=== PATIENT | male | born 1960 | race African-American/Black ===

== ENCOUNTER 2016-10-07 17:12 | Inpatient (IN) | payer MEDICARE ==
[~2016-10-07] VITALS: Ht 185.4 cm; Wt 103.7 kg
[~2016-10-07 17:12] MED LIST: DIAZ10TA4 PO; NAPR-260 PO
--- NOTE | 2016-10-07 19:07 | ERA ---
ER Documentation Chief Complaint Date/Time DATE: 10/07/16 TIME: 19:07 Chief Complaint Left leg weakness, bowel and urinary incontinence HPI The patient is a 56-year-old male, presenting to the ER because of left lower extremity weakness, associated with bowel and bladder incontinence for the last 2 weeks. He has fever and intermittent cough for the last 2 weeks. He denies chills, facial pain, neck pain, chest pain, dyspnea. He complains of left- sided abdominal pain intermittently for the last 2 weeks, denies diarrhea, constipation. He smokes socially, denies drinking or using illicit drug Past medical history: Chronic low back pain, HIV, hypertension, BPH, hepatitis C Past surgical history: Appendectomy, left knee arthroscopic surgery ROS All systems reviewed and are negative except as per history of present illness. Medications Home Meds Active Scripts Diazepam* (Diazepam*) 10 Mg Tablet, 10 MG PO Q12, #14 TAB Prov:FRANCISCO GAMBAO PA-C 06/04/16 Naproxen* (Naprosyn*) 500 Mg Tablet, 500 MG PO BID, #20 TAB Prov:FRANCISCO GAMBOA PA-C 06/04/16 PMhx/Soc Hx Cardiac Disorders: Yes (htn) Hx Alcohol Use: No Hx Substance Use: No Hx Tobacco Use: No Smoking Status: Current some day smoker Physical Exam Vitals Vital Signs Date Time Temp Pulse Resp B/P Pulse Ox O2 Delivery O2 Flow Rate FiO2 10/07/16 17:21 100.5 106 20 168/86 98 Physical Exam Const: No acute distress. Head: Atraumatic. Eyes: Normal Conjunctiva. ENT: Normal External Ears, Nose and Mouth. Neck: Full range of motion. No meningismus. Resp: Clear to auscultation bilaterally. Cardio: Regular rate and rhythm, no murmurs. Abd: Soft, non distended, normal bowel sounds, vague and mild left- sided abdominal tenderness, no right lower quadrant, right upper quadrant, epigastric, CVA tenderness Skin: No petechiae or rashes. Back: No midline or flank tenderness. Ext: Limited due to his condition, mild left leg weakness Neur: Awake and alert. No focal deficit Psych: Normal Mood and Affect. Procedures/MDM EKG: Read by emergency physician Rate/Rhythm: Sinus tachycardia 102 beats per min QRS, ST, T-waves: No ST elevation, no T wave inversion Impression: Abnormal EKG [place] [address] Radiology Main Line: [phone] DIAGNOSTIC IMAGING REPORT Patient: MARGARET GOLDSTEIN : 1960 Age: 56 Sex: M MR #: [id number] DOS: 10/07/161924 Ordering MD: MARZENA FLEMING MD Location: [facility]TE Room/Bed: PROCEDURE: XR Chest. CLINICAL INDICATION: Possible sepsis. TECHNIQUE: Single frontal view of the chest was obtained COMPARISON: None FINDINGS: The heart and mediastinum are within normal limits. The lungs are clear. There is no pleural effusion or pneumothorax. IMPRESSION: No acute disease. RPTAT: UU Physician Angela Date Time Electronically viewed and signed by Physician Angela on 10/07/2016 19:52 RS/ CC: MARZENA FLEMING MD [place] [address] Radiology Main Line: [phone] DIAGNOSTIC IMAGING REPORT Patient: MARGARET GOLDSTEIN : 1960 Age: 56 Sex: M MR #: [id number] DOS: 10/07/161924 Ordering MD: MARZENA FLEMING MD Location: E Room/Bed: PROCEDURE: CT abdomen and pelvis without contrast. CLINICAL INDICATION: Abdominal pain. TECHNIQUE: CT scan of the abdomen and pelvis without contrast was performed on a multislice CT scanner utilizing axial imaging from the lung bases through the pubis symphysis. The patient was scanned without intravenous contrast. Sagittal and coronal reformatted images were made. The CTDIvol is 18.70 mGy and the DLP is 1164.31 mGycm. One of the following 3 dose reduction techniques were used during this CT examination: automated exposure control; adjustment of the mA and /or kV according to patient size; or use of iterative reconstruciton technique. COMPARISON: None available FINDINGS: The lung bases are clear. The heart size is normal. No pericardial or pleural effusion is present. The limited noncontrast evaluation of the liver is normal. The visualized spleen, pancreas, gallbladder, bilateral adrenal glands are normal. The bilateral kidneys are normal without evidence for hydroureteronephrosis or nephroureterolithiasis. The limited evaluation of the aorta demonstrates mild vascular calcifications without evidence for aneurysmal dilatation. No evidence for pathologic lymphadenopathy is present. The visualized pelvis demonstrates a moderately distended urinary bladder with mildly thickened wall. The prostate gland is mildly enlarged. No evidence for pneumoperitoneum since present. The surrounding osseous structures are remarkable for degenerative changes and bridging osteophytes of the bilateral sacroiliac joints. Degenerative changes are noted of the spine. IMPRESSION: 1. No evidence for acute intra-abdominal or pelvic pathology. 2. Mild atherosclerotic vascular disease 3. Mild bladder wall thickening and an incompletely distended bladder 4. Mild prostatic enlargement and correlate with prostate-specific antigen. RPTAT: HDC .Kenna Calhoun MD, MD Date Time Electronically viewed and signed by .Kenna Calhoun MD, MD on 10/07/2016 19: 57 .C/ CC: MARZENA FLEMING MD All diagnostic blood tests, lumbar MRI are pending MEDICAL MAKING DECISION: The patient is a 66-year-old male, presenting to the ER with acute left leg weakness, associated with fecal and urine incontinence, concerning for spinal cord compression/cauda equina syndrome. He is awaiting for emergent MRI with and without contrast of the lumbar spine. The differential diagnoses considered include but are not limited to caudal equina syndrome, spinal abscess, DJD, diskitis, lumbar radiculopathy, pneumonia, cystitis, pyelonephritis. He was treated empirically with vancomycin IV, Zosyn IV Departure Diagnosis: Primary Impression: Left leg weakness Additional Impressions: Urinary incontinence Fecal incontinence Back pain Condition: Stable Comments I discussed the findings with the patient. I discussed the patient with the on- call hospitalist Dr. Chavez who was made aware of the pending lab and MRI, the treatment, the patient condition. The patient is admitted to telemetry at 8:10 PM MARZENA FLEMING MD Oct 07, 2016 19:07
--- NOTE | 2016-10-07 19:53 | RADRPT ---
PROCEDURE: XR Chest. CLINICAL INDICATION: Possible sepsis. TECHNIQUE: Single frontal view of the chest was obtained COMPARISON: None FINDINGS: The heart and mediastinum are within normal limits. The lungs are clear. There is no pleural effusion or pneumothorax. IMPRESSION: No acute disease. RPTAT: UU Physician Angela Date Time Electronically viewed and signed by Chang Witt Physician on 10/07/2016 19:52 RS/
--- NOTE | 2016-10-07 19:57 | RADRPT ---
PROCEDURE: CT abdomen and pelvis without contrast. CLINICAL INDICATION: Abdominal pain. TECHNIQUE: CT scan of the abdomen and pelvis without contrast was performed on a multislice CT [facility] utilizing axial imaging from the lung bases through the pubis symphysis. The patient was scann ed without intravenous contrast. Sagittal and coronal reformatted images were made. The CTDIvol is 18.70 mGy and the DLP is 1164.31 mGycm. One of the following 3 dose reduction techniques were used during this CT examination: automated exp osure control; adjustment of the mA and /or kV according to patient size; or use of iterative recons truciton technique. COMPARISON: None available FINDINGS: The lung bases are clear. The heart size is normal. No pericardial or pleural effusion is present. The limited noncontrast evaluation of the liver is normal. The visualized spleen, pancreas, gallbla dder, bilateral adrenal glands are normal. The bilateral kidneys are normal without evidence for hy droureteronephrosis or nephroureterolithiasis. The limited evaluation of the aorta demonstrates mild vascular calcifications without evidence for a neurysmal dilatation. No evidence for pathologic lymphadenopathy is present. The visualized pelvis demonstrates a moderately distended urinary bladder with mildly thickened wall . The prostate gland is mildly enlarged. No evidence for pneumoperitoneum since present. The surrounding osseous structures are remarkable for degenerative changes and bridging osteophytes of the bilateral sacroiliac joints. Degenerative changes are noted of the spine. IMPRESSION: 1. No evidence for acute intra-abdominal or pelvic pathology. 2. Mild atherosclerotic vascular disease 3. Mild bladder wall thickening and an incompletely distended bladder 4. Mild prostatic enlargement and correlate with prostate-specific antigen. RPTAT: HDC .Kenna Calhoun MD, MD Date Time Electronically viewed and signed by .Kenna Calhoun MD, MD on 10/07/2016 19:57 .C/
[2016-10-07 20:12] LABS: BASOPHILS % 0.3 % (0.0-2.0); EOSINOPHILS % 0.1 % (0.0-7.0); HEMATOCRIT 38.3 % (42.0-52.0); HEMOGLOBIN 12.8 g/dl (14.0-18.0); LYMPHOCYTES # 2.1 10^3/ul (0.8-2.9); LYMPHOCYTES % 20.9 % (15.0-51.0); MEAN CORPUSCULAR HEMOGLOBIN 31.4 pg (29.0-33.0); MEAN CORPUSCULAR HGB CONC 33.3 g/dl (32.0-37.0); MEAN CORPUSCULAR VOLUME 94.2 fl (82.0-101.0); MEAN PLATELET VOLUME 10.4 fl (7.4-10.4); MONOCYTE # 1.1 10^3/ul (0.3-0.9); MONOCYTES % 11.1 % (0.0-11.0); NEUTROPHIL # 6.7 10^3/ul (1.6-7.5); NEUTROPHILS % 67.6 % (39.0-77.0); PLATELET COUNT 122 10^3/UL (140-440); RED BLOOD COUNT 4.07 10^6/ul (4.70-6.10)
[2016-10-07] MEDS ORDERED: VANCOMYCIN IV PER PHARMACY XX STA (20:12)
[2016-10-07 20:17] LABS: ALBUMIN 4.2 g/dl (3.3-4.9); CHLORIDE 101 mmol/L (97-110); INR 1.1; PROTIME 14.2 Sec (12.2-14.2); PT RATIO 1.1
[2016-10-07 20:18] LABS: PARTIAL THROMBOPLASTIN TIME 29.2 Sec (25.0-35.0); SODIUM 142 mmol/L (135-144)
[2016-10-07 20:20] LABS: ALANINE AMINOTRANSFERASE 28 IU/L (13-69); ALBUMIN/GLOBULIN RATIO 0.97; ALKALINE PHOSPHATASE 79 IU/L (42-121); ANION GAP 19 (8-16); ASPARTATE AMINO TRANSFERASE 40 IU/L (15-46); BILIRUBIN,INDIRECT 0.9 mg/dl (0-1.1); BILIRUBIN,TOTAL 0.9 mg/dl (0.2-1.3); BLOOD UREA NITROGEN 13 mg/dl (7-20); CARBON DIOXIDE 26 mmol/L (21-31); CREATININE 0.87 mg/dl (0.61-1.24); GLUCOSE 93 mg/dl (70-220); TOTAL PROTEIN 8.5 g/dl (6.1-8.1)
[2016-10-07 20:24] LABS: ETHANOL < 10.0 mg/dl
[2016-10-07 20:25] LABS: CONDITION 1
[2016-10-07] MEDS ORDERED: PIPER-TAZO 3.375 GM IV (PMX) 100 ML IVPB ONE (20:30)
[2016-10-07 20:34] LABS: TROPONIN-I < 0.012 ng/ml (0.00-0.12)
[2016-10-07] MEDS ORDERED: VANCOMYCIN 2 GM in SOD CHLORIDE 0.9% 500 ML IVPB ONE (21:00)
[2016-10-07 21:59] VITALS: TEMP 98
[2016-10-07 22:30] VITALS: BP 155/86; PULSE 100; RESP 20; Ht 185.4 cm; Wt 103.7 kg
[2016-10-07 22:37] VITALS: PULSE 101
[2016-10-08] VITALS (14 sets, daily range): BP systolic 129–155; BP diastolic 64–90; PULSE 83–111; RESP 16–18
[2016-10-08] MEDS ORDERED: DIAZEPAM 5 MG TAB PO PRN (00:30)
[2016-10-08] MEDS ORDERED: NAPROXEN 500 MG TAB PO PRN (00:30)
[2016-10-08] MEDS ORDERED: ONDANSETRON 4 MG INJ IV PRN (00:30)
[2016-10-08] MEDS ORDERED: morphine 4 MG/ML VIAL IV PRN (00:30)
[2016-10-08 06:57] LABS: BASOPHILS % 0.1 % (0.0-2.0); HEMATOCRIT 36.6 % (42.0-52.0); HEMOGLOBIN 12.4 g/dl (14.0-18.0); LYMPHOCYTES # 1.9 10^3/ul (0.8-2.9); LYMPHOCYTES % 19.4 % (15.0-51.0); MEAN CORPUSCULAR HEMOGLOBIN 31.8 pg (29.0-33.0); MEAN CORPUSCULAR HGB CONC 33.8 g/dl (32.0-37.0); MEAN CORPUSCULAR VOLUME 94.3 fl (82.0-101.0); MEAN PLATELET VOLUME 10.6 fl (7.4-10.4); MONOCYTE # 1.2 10^3/ul (0.3-0.9); MONOCYTES % 12.3 % (0.0-11.0); NEUTROPHIL # 6.8 10^3/ul (1.6-7.5); NEUTROPHILS % 68.2 % (39.0-77.0); PLATELET COUNT 120 10^3/UL (140-440); RED BLOOD COUNT 3.89 10^6/ul (4.70-6.10); RED CELL DISTRIBUTION WIDTH 11.9 % (11.5-14.5); UNCORRECTED WBC 9.9 10^3/ul (4.8-10.8); WHITE BLOOD COUNT 9.9 10^3/ul (4.8-10.8)
[2016-10-08 07:08] LABS: CONDITION 1; POTASSIUM 3.8 mmol/L (3.5-5.1)
[2016-10-08 07:10] LABS: CREATININE 0.8 mg/dl (0.61-1.24)
[2016-10-08 07:11] LABS: CALCIUM 8.8 mg/dl (8.4-10.2)
--- NOTE | 2016-10-08 12:18 | HP ---
DATE OF ADMISSION: 10/07/2016 TIME SEEN: 2300. CHIEF COMPLAINT: 1. Left lower extremity weakness. 2. Incontinence. 3. Back pain. HISTORY OF PRESENT ILLNESS: The patient is a 56-year-old male with a history of HIV diagnosed about 16 years ago and hypertension, who presented to the emergency department with the above stated hood f complaint. He states data he has been dealing with the lower back pain since he was in his 30s an d about a month ago he started noticing left lower extremity weakness and pain, especially when ambu lating. About 2 weeks ago he noticed intermittent bowel and bladder incontinence and as such, he cam e to the ER for evaluation. He denied any recent trauma. He also denied chest pain, shortness of br eath, blurry vision, headache, fever, chills, nausea, or vomiting. As far as his HIV is concerned, it was diagnosed around the year 1999 but lately he has not been compliant with his medications. He said recently his HIV medications were changed and because of "interaction with other medication" h as only been taking some of his medications and in fact the last time he took any of his HIV medicat ion was over a week ago. He does not know his CD4 count or his viral load. When he presented to the ER, the patient was febrile with a temperature of 100.5 and he was tachycar dic. The spine MRI has been ordered but still pending. REVIEW OF SYSTEMS: Performed and is negative except as mentioned in HPI. PAST MEDICAL HISTORY: As per HPI. SOCIAL HISTORY: Positive for tobacco. He drinks alcohol occasionally. He had a history of marijua na and cocaine, but he quit a while ago. ALLERGIES: HOME MEDICATIONS: The only one that he remembers is [place]. PHYSICAL EXAMINATION: VITAL SIGNS: Stable. GENERAL: The patient lying in bed in no acute distress. He is cooperative. Answering questions ap propriately and is alert and oriented. HEENT: No obvious head deformity. Pupils are reactive to light. Extraocular muscles intact. CARDIOVASCULAR: Regular rate and rhythm, no extra sounds. LUNGS: Clear. ABDOMEN: Soft, nontender, nondistended. Positive bowel sounds. EXTREMITIES: There is tenderness in the left lower extremity especially on the thigh area. He has s mooth shiny skin on his tang with some thin hair on the left lower extremity. BACK: Examination of his back did not illicit any obvious deformity or abnormality, but there was so me tenderness at the lower lumbar region. IMPRESSION: 1. Lower back pain with sciatica, concerning for possible cauda equina. 2. Bowel and bladder incontinence, concerning for cauda equina syndrome. 3. History of human immunodeficiency virus, diagnosed around the year 1999. 4. History of hypertension. 5. Sepsis inflammatory response syndrome, ____ by fever and tachycardia. 6. History of hepatitis C, never treated. PLAN: We will provide pain medication as needed. Will await for the results of final MRI to evaluat e if there is any cord compression. Neurosurgery consultation needs to be placed. Will do infectious workup ____ . It may even be possible that patient may even have some type of infectious process o n his spine, which is contributing to his presenting symptom. Further workup and management per clinical course. Dictated By: LEYX RODRIGES/ANDREW Conf#: [id number] DID#: [id number]
--- NOTE | 2016-10-08 13:39 | PN ---
Date/Time of Note Date/Time of Note DATE: 10/08/16 TIME: 13:34 Assessment/Plan VTE Prophylaxis VTE Prophylaxis Intervention: SCD's Lines/Catheters IV Catheter Type (from Nrsg): Peripheral IV Urinary Cath still in place: No Assessment/Plan Assessment/Plan 1. Lower back pain with sciatica, concerning for possible cauda equina, awaiting for MRI of spine 2. Bowel and bladder incontinence, concerning for cauda equina syndrome, follow up with MRI, flomax, send UA 3. History of human immunodeficiency virus, diagnosed around the year 1999. 4. History of hypertension. 5. Sepsis inflammatory response syndrome, ____ by fever and tachycardia. 6. History of hepatitis C, never treated. Subjective 24 Hr Interval Summary Free Text/Dictation difficulty in urination left leg pain and weakness Exam/Review of Systems Vital Signs Vitals Vital Signs Date Time Temp Pulse Resp B/P Pulse Ox O2 Delivery O2 Flow Rate FiO2 10/08/16 12:22 99.3 111 18 148/88 93 Room Air Intake and Output 10/07/16 10/07/16 10/08/16 15:00 23:00 07:00 Intake Total 100 ml Output Total 350 ml Balance -250 ml Exam Constitutional: alert, oriented, well developed Head: atraumatic, normocephalic Eyes: EOMI, PERRL, nl conjunctiva, nl lids, nl sclera ENMT: mucosa pink and moist, nl external ears & nose, nl lips & teeth, nl nasal mucosa & septum Neck: non-tender, supple Respiratory: clear to auscultation, normal air movement Cardiovascular: nl pulses, regular rate and rhythm Gastrointestinal: nl liver, spleen, non-tender, soft Musculoskeletal: nl extremities to inspection Extremities: normal pulses, other, No calf tenderness, No clubbing, No cyanosis, No edema, No palpable cord, No pitting pedal edema, No tenderness Neurological: [employer] ASST II-XII intact, nl mental status, nl speech, nl strength Skin: nl turgor, rash or lesions Lymph: nl lymph nodes Results Result Diagram: 10/08/1615 10/08/1615 Results 24 hrs Laboratory Tests Test 10/07/16 19:45 10/07/16 21:29 10/07/16 23:40 10/08/16 06:15 Activated Partial Thromboplast Time 29.2 Alanine Aminotransferase (ALT/SGPT) 28 Albumin 4.2 Albumin/Globulin Ratio 0.97 Alkaline Phosphatase 79 Anion Gap 19 H 16 Aspartate Amino Transf (AST/SGOT) 40 Basophils # 0.0 0.0 Basophils % 0.3 0.1 Blood Morphology Comment Blood Urea Nitrogen 13 12 Calcium Level 9.0 8.8 Carbon Dioxide Level 26 23 Chloride Level 101 102 Creatinine 0.87 0.80 Direct Bilirubin 0.00 Eosinophils # 0.0 0.0 Eosinophils % 0.1 0.0 Ethyl Alcohol Level < 10.0 Globulin 4.30 H Glucose Level 93 92 Hematocrit 38.3 L 36.6 L Hemoglobin 12.8 L 12.4 L INR International Normalized Ratio 1.10 Indirect Bilirubin 0.9 Lactic Acid Level 1.1 0.8 0.8 Lipase 95 Lymphocytes # 2.1 1.9 Lymphocytes % 20.9 19.4 Mean Corpuscular Hemoglobin 31.4 31.8 Mean Corpuscular Hemoglobin Concent 33.3 33.8 Mean Corpuscular Volume 94.2 94.3 Mean Platelet Volume 10.4 10.6 H Monocytes # 1.1 H 1.2 H Monocytes % 11.1 H 12.3 H Neutrophils # 6.7 6.8 Neutrophils % 67.6 68.2 Nucleated Red Blood Cells # 0.0 0.0 Nucleated Red Blood Cells % 0.0 0.0 Platelet Count 122 L 120 L Potassium Level 4.0 3.8 Prothrombin Time 14.2 Prothrombin Time Ratio 1.1 Red Blood Count 4.07 L 3.89 L Red Cell Distribution Width 12.0 11.9 Sodium Level 142 137 Total Bilirubin 0.9 Total Protein 8.5 H Troponin I < 0.012 White Blood Count 10.0 9.9 Medications Medications Current Medications Diazepam (Valium) 10 mg BID PRN PO ANXIETY; Start 10/08/16 at 00:30 Morphine Sulfate (morphine) 4 mg Q4H PRN IV SEVERE PAIN LEVEL 7-10; Start 10/08 at 00:30 Ondansetron HCl (Zofran Inj) 4 mg Q4H PRN IV NAUSEA AND/OR VOMITING; Start at 00:30 Naproxen (Naprosyn) 500 mg BID PRN PO PAIN; Start 10/08/16 at 00:30 ALLYSSA HOWARD MD Oct 08, 2016 13:39
--- NOTE | 2016-10-08 16:17 | RADRPT ---
PROCEDURE: MRI Lumbar Spine without contrast. CLINICAL INDICATION: 56-year-old male with left leg weakness and bowel/bladder incontinence over t he last 2 weeks. TECHNIQUE: An MRI of the lumbar spine was performed with multiple sequences in the sagittal and ax ial planes without contrast. Images reviewed on a high-resolution PACS system. COMPARISON: None available at the time of dictation. FINDINGS: The images are significantly limited due to extensive motion artifact. The alignment of the lumbar spine appears normal. The vertebral body heights appear maintained. There is extensive signal heter ogeneity involving the left L5 and S1 vertebral bodies as well as involving the right L5 pedicle/par s interarticularis. 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 There is a small cyst posterior to th e S1-2 disc, which is nonspecific. 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 The conus medullaris is visible at the L1 level and appears grossly normal. The lumbar nerve roots are normal in appearance. The paraspinal soft tissues are u nremarkable. No significant paraspinal soft tissue swelling. On the sagittal views, there appears t o be severe narrowing of the bilateral L4-5 5 S1 foramina. The axial images were not well evaluated due to extensive motion artifact. IMPRESSION: 1. Extensive motion artifact in the sagittal and axial sequences, with nondiagnostic axial sequence s. Repeat examination with sedation/lack of motion is recommended. 2. Signal abnormality involving the L5 and S1 vertebral bodies, which are nonspecific. 3. No significant narrowing of the intervertebral discs or definite evidence of spinal stenosis at this time. 4. Partial visualization of the sagittal views demonstrate severe narrowing of the bilateral L4-5 a nd L5-S1 foramina. RPTAT: DD .Shun Brown MD, Date Time Electronically viewed and signed by .Shun Brown MD, MD on 10/08/2016 16:17 .S/
[2016-10-08 19:03] LABS: ADD UMIC YES; URINE BILIRUBIN (Dip) NEGATIVE (NEGATIVE); URINE BLOOD (Dip) 3+ (NEGATIVE); URINE COLOR LT. YELLOW (YELLOW); URINE GLUCOSE (Dip) NEGATIVE (NEGATIVE); URINE KETONES (Dip) NEGATIVE (NEGATIVE); URINE LEUKOCYTE ESTERASE (Dip) 1+ (NEGATIVE); URINE NITRITE (Dip) POSITIVE (NEGATIVE); URINE TOTAL PROTEIN (Dip) TRACE (NEGATIVE); URINE UROBILINOGEN (Dip) 1.0 E.U./dL (0.1-1.0)
[2016-10-08 19:17] LABS: URINE RBCS 25-50 /HPF (0)
[2016-10-08 19:18] LABS: BACTERIA,URINE FEW; SQUAMOUS EPITHELIAL CELL,UR FEW
[2016-10-08 19:30] LABS: BARBITURATES Negative (NEGATIVE)
[2016-10-08 19:31] LABS: BENZODIAZEPINES Negative (NEGATIVE)
[2016-10-08 19:32] LABS: CANNABINOIDS Negative (NEGATIVE); COCAINE Positive (NEGATIVE)
[2016-10-08 19:36] LABS: OPIATES Negative (NEGATIVE)
[2016-10-08] MEDS: TAMSULOSIN (SR) 0.4 MG CAP PO SCH (20:11)
[2016-10-09] VITALS (11 sets, daily range): BP systolic 131–149; BP diastolic 72–88; PULSE 63–104; RESP 14–20
[2016-10-09 06:23] LABS: POTASSIUM 3.6 mmol/L (3.5-5.1)
[2016-10-09 06:25] LABS: CREATININE 0.78 mg/dl (0.61-1.24)
[2016-10-09 06:26] LABS: CALCIUM 8.4 mg/dl (8.4-10.2)
[2016-10-09 06:33] LABS: BASOPHILS % 0.4 % (0.0-2.0); EOSINOPHILS % 0.1 % (0.0-7.0); HEMOGLOBIN 12.3 g/dl (14.0-18.0); LYMPHOCYTES # 1.7 10^3/ul (0.8-2.9); LYMPHOCYTES % 21.8 % (15.0-51.0); MEAN CORPUSCULAR HEMOGLOBIN 31.4 pg (29.0-33.0); MEAN CORPUSCULAR HGB CONC 33.3 g/dl (32.0-37.0); MEAN CORPUSCULAR VOLUME 94.3 fl (82.0-101.0); MEAN PLATELET VOLUME 10.5 fl (7.4-10.4); MONOCYTES % 12.5 % (0.0-11.0); NEUTROPHILS % 65.2 % (39.0-77.0); PLATELET COUNT 111 10^3/UL (140-440); RED BLOOD COUNT 3.92 10^6/ul (4.70-6.10); RED CELL DISTRIBUTION WIDTH 11.7 % (11.5-14.5); UNCORRECTED WBC 7.7 10^3/ul (4.8-10.8); WHITE BLOOD COUNT 7.7 10^3/ul (4.8-10.8)
[2016-10-09 06:55] LABS: CONDITION 1
[2016-10-09] MEDS ORDERED: LEVOFLOXACIN 500MG/D5W (PMX) 100 ML IVPB SCH (13:00)
--- NOTE | 2016-10-09 13:09 | PN ---
Date/Time of Note Date/Time of Note DATE: 10/09/16 TIME: 13:03 Assessment/Plan VTE Prophylaxis VTE Prophylaxis Intervention: LMWH Lines/Catheters [facility] [place] Urinary Cath still in place: No Assessment/Plan Assessment/Plan 1. Urinary tract infection, levaquin 2. Sepsis from UTI, IVF and levaquin 3. Lower back pain with sciatica, MRI no cord compression, pain management 4. History of human immunodeficiency virus, diagnosed around the year 1999. 5. Hypertension. stable 6. History of hepatitis C, never treated. 7. DVT prophylaxis: lovenox Subjective 24 Hr Interval Summary Free Text/Dictation dysuria pain on legs Exam/Review of Systems Vital Signs Vitals Vital Signs Date Time Temp Pulse Resp B/P Pulse Ox O2 Delivery O2 Flow Rate FiO2 10/09/16 11:55 99.7 84 16 149/85 94 10/08/16 16:00 Room Air Intake and Output 10/08/16 10/08/16 10/09/16 15:00 23:00 07:00 Intake Total 1440 ml Output Total 250 ml 500 ml Balance 1190 ml -500 ml Exam Constitutional: alert, oriented, well developed Psych: nl mood/affect, no complaints Head: atraumatic, normocephalic Eyes: EOMI, PERRL, nl conjunctiva, nl lids, nl sclera ENMT: mucosa pink and moist, nl external ears & nose, nl lips & teeth, nl nasal mucosa & septum Neck: non-tender, supple Respiratory: clear to auscultation, normal air movement, No congested cough, No crackles/rales, No diminished breath sounds, No intercostal retraction, No labored breathing, No respirations, No tactile fremitus, No wheezing Cardiovascular: nl pulses, regular rate and rhythm, No S3, No S4, No bruits, No diastolic murmur, No edema, No gallop, No irregular rhythm, No jugular venous distention (JVD), No murmurs/extra sounds, No rub, No systolic murmur Gastrointestinal: nl liver, spleen, non-tender, soft, No ascites, No bowel sounds, No distended, No firm, No hepatomegaly, No mass , No rebound or guarding, No splenomegaly, No surgical scars, No tender Musculoskeletal: nl extremities to inspection 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, nl mental status, nl speech, nl strength Skin: nl turgor, rash or lesions Lymph: nl lymph nodes Results Result Diagram: 10/09/16 0550 10/09/16 0550 Results 24 hrs Laboratory Tests Test 10/09/16 05:50 Anion Gap 16 Basophils # 0.0 Basophils % 0.4 Blood Morphology Comment Blood Urea Nitrogen 12 Calcium Level 8.4 Carbon Dioxide Level 24 Chloride Level 103 Creatinine 0.78 Eosinophils # 0.0 Eosinophils % 0.1 Glucose Level 90 Hematocrit 37.0 L Hemoglobin 12.3 L Lymphocytes # 1.7 Lymphocytes % 21.8 Mean Corpuscular Hemoglobin 31.4 Mean Corpuscular Hemoglobin Concent 33.3 Mean Corpuscular Volume 94.3 Mean Platelet Volume 10.5 H Monocytes # 1.0 H Monocytes % 12.5 H Neutrophils # 5.0 Neutrophils % 65.2 Nucleated Red Blood Cells # 0.0 Nucleated Red Blood Cells % 0.0 Platelet Count 111 L Potassium Level 3.6 Red Blood Count 3.92 L Red Cell Distribution Width 11.7 Sodium Level 139 White Blood Count 7.7 # Medications Medications Current Medications Diazepam (Valium) 10 mg BID PRN PO ANXIETY; Start 10/08/16 at 00:30 Morphine Sulfate (morphine) 4 mg Q4H PRN IV SEVERE PAIN LEVEL 7-10 Last administered on 10/09/16 03:44; Admin Dose 4 MG; Start 10/08/16 at 00:30 Ondansetron HCl (Zofran Inj) 4 mg Q4H PRN IV NAUSEA AND/OR VOMITING; Start at 00:30 Naproxen (Naprosyn) 500 mg BID PRN PO PAIN; Start 10/08/16 at 00:30 Tamsulosin HCl 0.4 mg 0.4 mg HS PO Last administered on 10/08/16 20:11; Admin Dose 0.4 MG; Start 10/08/16 at 21:00 Levofloxacin/ Dextrose (Levaquin 500mg/ D5W 100 ml (Pmx)) 100 ml @ 100 mls/hr Q24H IVPB ; Start 10/09/16 at 13:00 ALLYSSA HOWARD MD Oct 09, 2016 13:09
[2016-10-09 17:48] LABS: LYMPHOCYTE - CD4/CD8 RATIO 0.19 (0.86-5.00)
[2016-10-09] MEDS: TAMSULOSIN (SR) 0.4 MG CAP PO SCH (20:35)
[2016-10-10] VITALS (7 sets, daily range): BP systolic 121–150; BP diastolic 67–90; PULSE 78–116; RESP 20
--- NOTE | 2016-10-10 10:06 | PDOCDIS ---
Discharge Instructions CONDITION Patient Condition: Good HOME CARE INSTRUCTIONS: Diet Instructions: Regular ACTIVITY: Activity Restrictions: No Restrictions FOLLOW UP/APPOINTMENTS Appointments F/U WITH YOUR PCP IN 1-2 WEEKS GEE CEDILLO Oct 10, 2016 10:06
[2016-10-10] MEDS ORDERED: CIPR500T4 PO (10:07)
--- NOTE | 2016-10-11 12:11 | DS ---
DATE OF ADMISSION: 10/07/2016 DATE OF DISCHARGE: 10/10/2016 DISCHARGE DIAGNOSES: 1. Sepsis secondary to urinary tract infection, now stable. Discharge with antibiotics. 2. Lower back pain secondary to sciatica. Home health and front-wheel walker. 3. History of human immunodeficiency virus, questionable compliance. Patient advised to follow up with his primary care physician. He states that he did take his human immunodeficiency virus medica tions and will follow up with his primary care physician. 4. Hypertension, stable. 5. History of hepatitis C. The patient will follow up with his physician for further treatment. 6. Substance abuse with cocaine and amphetamines. Patient advised to stop using. HOSPITAL COURSE: The patient is a 56-year-old male with history of human immunodeficiency virus bere gnosed 15 years ago and hypertension. The patient presents with left lower extremity weakness, inco ntinence, back pain. The patient had a UA on arrival that suggested a UTI. The patient had a lumba r spine MRI that showed signal abnormality involving L5-S1 vertebral bodies which were nonspecific. There is also severe narrowing of the bilateral L4-L5 and L5-S1 foramina. PT did evaluate the ponce ent. Recommendation was for home health, further physical therapy, and front wheeled walker. Of no te, the patient did have a U-tox that was positive for amphetamines and cocaine. The patient was fe lt to be stable for discharge. On the day of discharge the patient's vitals, labs, and physical exa m were stable. He had no acute complaints, and questions were answered. Patient again was advised to follow up with his PCP for further treatment of his HIV. He states that he does have his HIV med ications. CONDITION ON DISCHARGE: Stable. MEDICATIONS: The patient was given a prescription for Cipro 500 p.o. b.i.d. for 7 days. The patien t is to continue other home medications, including his HIV medications. FOLLOWUP: The patient is to follow up with PCP in 1 to 2 weeks. Greater than 30 minutes coordinating discharge of patient. DISPOSITION: To home with home health. Dictated By: GEE CEDILLO MD BS/NTS Conf#: [id number] DID#: [id number]
== END 2016-10-10 12:10 | disposition home health service (06) | DRG 872 ==
LOC: FTE 17:12 → TEL 20:19
PROVIDERS: ADMIT Internal Medicine; ATTEND Internal Medicine
DX: A41.9 Sepsis, unspecified organism (principal); I10 Essential (primary) hypertension; N39.0 Urinary tract infection, site not specified; M54.40 Lumbago with sciatica, unspecified side; F14.10 Cocaine abuse, uncomplicated; F15.10 Other stimulant abuse, uncomplicated; B19.20 Unspecified viral hepatitis C without hepatic coma; Z91.14 Patient's other noncompliance with medication regimen; Z72.0 Tobacco use
CPT/HCPCS: 36415; 71010; 72158; 74176; 80048; 80053; 80306; 80307; 81001; 81003; 83605; 83690; 84484; 85025; 85610; 85730; 86360; 87040; 87086; 87536; 93005; 96374; 97162; J1956; J2270; J2543; J3370; J7040

== ENCOUNTER 2018-11-08 00:44 | Inpatient (IN) | payer MEDICARE, BC ==
[~2018-11-08] VITALS: Ht 185.4 cm; Wt 99.5 kg
[~2018-11-08 00:44] MED LIST changes: +CIPR500T4 PO; -NAPR-260 PO; +NAPR-985 PO
[2018-11-08] MEDS ORDERED: ONDANSETRON 4 MG INJ IV STA (03:59)
[2018-11-08] MEDS ORDERED: FER325 PO (04:53)
[2018-11-08] MEDS ORDERED: DICL100G37 TOP (04:53)
[2018-11-08] MEDS ORDERED: DUTA1CPM4 PO (04:53)
[2018-11-08] MEDS ORDERED: TRIA15CR52 TOP (04:53)
[2018-11-08] MEDS ORDERED: LISI40TA3 PO (04:53)
[2018-11-08] MEDS ORDERED: GABA300C16 PO (04:53)
--- NOTE | 2018-11-08 05:44 | ERD ---
ER Documentation Chief Complaint Chief Complaint vomiting x 1 week, also c/o swelling both legs/cough HPI This is a 57-year-old male complains of vomiting on and off for the past week. Vomiting 3-4 times per day nonbilious nonbloody non-feculent. Is also had abdominal pain, nonlocalizing mild to moderate intensity. With 2-3 episodes of loose stool as well. Complaint of abdominal distention as well. Patient is an HIV patient is not been on his antiretroviral medication for many many months secondary to financial concerns. Denies any fevers or chills. Denies any other current issues. ROS All systems reviewed and are negative except as per history of present illness. Medications Home Meds Reported Medications Dutasteride/Tamsulosin HCl (Dutasteride-Tamsulosin 0.5-0.4) 1 Each Cpmp.24hr, 1 EACH PO DAILY, CAP 11/08/18 Gabapentin* (Gabapentin*) 300 Mg Capsule, 600 MG PO TID, #180 CAP 11/08/18 Lisinopril* (Lisinopril*) 40 Mg Tablet, 40 MG PO DAILY, #30 TAB 11/08/18 Diclofenac Sodium* (Voltaren* Gel) 1% -100 Gm Gel, 2 GM TOP TID, #1 TUB 11/08/18 Triamcinolone Acetonide* (Kenalog*) 0.5%-15GM Cr, 1 APPLIC TOP BID, #1 BOTTLE 11/08/18 Ferrous Sulfate* (Ferrous Sulfate*) 325 Mg Tabec, 325 MG PO DAILY, TAB 11/08/18 Discontinued Scripts Ciprofloxacin Hcl* (Ciprofloxacin Hcl*) 500 Mg Tablet, 500 MG PO BID for 7 Days, TAB Prov:GEE CEDILLO 10/10/16 Diazepam* (Diazepam*) 10 Mg Tablet, 10 MG PO Q12, #14 TAB Prov:FRANCISCO GAMBOA PA-C 06/04/16 Naproxen* (Naprosyn*) 500 Mg Tablet, 500 MG PO BID, #20 TAB Prov:FRANCISCO GAMBOA PA-C 06/04/16 Allergies Allergies: Coded Allergies: No Known Allergy (Unverified , 11/08/18) PMhx/Soc History of Surgery: Yes (APPENDECTOMY) Anesthesia Reaction: No Hx Neurological Disorder: No Hx Respiratory Disorders: No Hx Cardiac Disorders: No (HTN) Hx Psychiatric Problems: No Hx Miscellaneous Medical Probl: Yes (CATARACT, HIV, DM, HYPERLIPIDEMIA, HEP C) Hx Alcohol Use: No Hx Substance Use: Yes (METH, LAST USE 11/01/18) Hx Tobacco Use: Yes Smoking Status: Current every day smoker Physical Exam Vitals Vital Signs Date Temp Pulse Resp B/P (MAP) Pulse Ox O2 O2 Flow FiO2 Time Delivery Rate 11/08/18 69 15 145/103 98 Room Air 04:15 (117) 11/08/18 98.2 95 18 173/96 100 01:13 (121) Physical Exam Const: No acute distress Head: Atraumatic Eyes: Normal Conjunctiva ENT: Normal External Ears, Nose and Mouth. Neck: Full range of motion. No meningismus. Resp: Clear to auscultation bilaterally Cardio: Regular rate and rhythm, no murmurs Abd: Soft, non tender, non distended. Normal bowel sounds Skin: No petechiae or rashes Back: No midline or flank tenderness Ext: No cyanosis, or edema Neur: Awake and alert Psych: Normal Mood and Affect Result Diagram: 11/08/18 0426 11/08/18 0426 Results 24 hrs Laboratory Tests Test 11/08/18 04:17 11/08/18 04:26 Urine Color JAYME Urine Clarity SLIGHTLY CLOUDY Urine pH 5.0 Urine Specific [place] 1.024 Urine Ketones NEGATIVE mg/dL Urine Nitrite NEGATIVE mg/dL Urine Bilirubin NEGATIVE mg/dL Urine Urobilinogen 2+ mg/dL Urine Leukocyte Esterase NEGATIVE Tito/ul Urine Microscopic RBC 2 /HPF Urine Microscopic WBC 8 /HPF Urine Squamous Epithelial Cells FEW /HPF Urine Mucus FEW /HPF Urine Hemoglobin NEGATIVE mg/dL Urine Glucose NEGATIVE mg/dL Urine Total Protein NEGATIVE mg/dl White Blood Count 7.1 10^3/ul Red Blood Count 4.10 10^6/ul Hemoglobin 12.8 g/dl Hematocrit 40.0 % Mean Corpuscular Volume 97.6 fl Mean Corpuscular Hemoglobin 31.2 pg Mean Corpuscular Hemoglobin Concent 32.0 g/dl Red Cell Distribution Width 12.3 % Platelet Count 116 10^3/UL Mean Platelet Volume 11.5 fl Immature Granulocytes % 0.400 % Neutrophils % 44.8 % Lymphocytes % 42.4 % Monocytes % 12.0 % Eosinophils % 0.1 % Basophils % 0.3 % Nucleated Red Blood Cells % 0.0 /100WBC Immature Granulocytes # 0.030 10^3/ul Neutrophils # 3.2 10^3/ul Lymphocytes # 3.0 10^3/ul Monocytes # 0.9 10^3/ul Eosinophils # 0.0 10^3/ul Basophils # 0.0 10^3/ul Nucleated Red Blood Cells # 0.0 10^3/ul Sodium Level 140 mmol/L Potassium Level 3.6 mmol/L Chloride Level 104 mmol/L Carbon Dioxide Level 30 mmol/L Anion Gap 6 Blood Urea Nitrogen 11 mg/dl Creatinine 0.83 mg/dl Est Glomerular Filtrat Rate mL/min > 60 mL/min Glucose Level 88 mg/dl Calcium Level 9.1 mg/dl Total Bilirubin 0.8 mg/dl Direct Bilirubin 0.00 mg/dl Indirect Bilirubin 0.8 mg/dl Aspartate Amino Transf (AST/SGOT) 124 IU/L Alanine Aminotransferase (ALT/SGPT) 124 IU/L Alkaline Phosphatase 84 IU/L Troponin I < 0.012 ng/ml Total Protein 8.2 g/dl Albumin 4.0 g/dl Globulin 4.20 g/dl Albumin/Globulin Ratio 0.95 Lipase 205 U/L Current Medications Medications Dose Sig/Aletha Start Time Status Last (Trade) Ordered Route PRN Stop Time Admin Dose Reason Admin Ondansetron 4 mg ONCE STAT 11/08/18 DC 11/08/18 HCl (Zofran IV 03:59 04:29 Inj) 11/08/18 04:00 Procedures/MDM EKG: Rate/Rhythm: [Normal Sinus Rhythm] QRS, ST, T-waves: [No changes consistent w/ acute ischemia] Impression: [No evidence of ischemia or arrhythmia] Chest X-ray 1V Interpreted by me: Soft Tissue: No acute abnorma lities Bones: No acute abnormalities Mediastinum/Cardiac Silhouette/Lungs: [No acute abnormalities] Medical decision make: 57-year-old male here with ileus and intractable abdominal pain. Patient will be admitted for further evaluation and management to the hospitalist service at 6 AM. Departure Diagnosis: Primary Impression: Acute vomiting Condition: LEXY Mcdowell Nov 08, 2018 05:44
[2018-11-08] MEDS ORDERED: DEXTROSE 5%-0.45% NACL 1,000 ML IV SCH (06:49)
[2018-11-08] MEDS ORDERED: morphine 2 MG INJ IV PRN (07:00)
[2018-11-08] MEDS ORDERED: ONDANSETRON 4 MG INJ IV PRN (07:00)
[2018-11-08] MEDS ORDERED: NACL 0.9% 3 ML SYG IV SCH (07:00)
[2018-11-08] MEDS: METOCLOPRAMIDE 10 MG INJ IV SCH ×5 (07:50→23:52)
[2018-11-08] MEDS: DICLOFENAC SODIUM 1% GEL 100 GM TUBE TP SCH ×3 (09:00→21:12)
[2018-11-08] MEDS: TRIAMCINOLONE ACET 0.5% 15 GM CR TOP SCH ×2 (09:00→21:12)
[2018-11-08] MEDS: ENOXAPARIN 40 MG/0.4 ML SYG SC SCH (09:29)
--- NOTE | 2018-11-08 11:25 | HP ---
Date/Time of Note Date/Time of Note DATE: 11/08/18 TIME: 11:25 Assessment/Plan VTE Prophylaxis Pharmacological prophylaxis: LMWH Lines/Catheters IV Catheter Type (from [facility]): Saline Lock Assessment/Plan Hospital Course 57-year-old male with comorbidities including HIV who is noncompliant with his HIV medications, hypertension, and substance abuse who came to the emergency room with vague complaints, who was found to have possible underlying ileus in the CT scan and will be admitted to inpatient setting for further treatment and evaluation. 1. Possible underlying ileus. -The patient will be started on prokinetic therapy. -The patient will be started on a clear liquid diet and the patient's diet will be advanced as tolerated if the patient has no significant nausea/vomiting. 2. Essential hypertension. -Resume home antihypertensives. 3. HIV positive status -Resume antiretroviral medications -Obtain CD4 count. 4. Edema of bilateral upper and lower extremities -Obtain ultrasound of all 4 extremities to evaluate for any underlying DVT. 5. Substance abuse. -Cessation will be advised. Plan: The patient will be admitted to inpatient medical surgical floor. The patient will be started on a clear liquid diet. The patient will be started on DVT prophylaxis. The patient will remain a full code. Activities will be as tolerated. The rest of the patient's management will be based on the clinical course and the results of diagnostic studies. Based on the patient's clinical presentation, he most probably requires at least 2 midnights' stay for further management and evaluation of his clinical presentation. The patient was seen in collaboration with Dr. Pate. Result Diagram: 11/08/18 0426 11/08/18 0426 Results 24hrs Laboratory Tests Test 11/08/18 04:17 11/08/18 04:26 Urine Color JAYME Urine Clarity SLIGHTLY CLOUDY A Urine pH 5.0 Urine Specific [place] 1.024 Urine Ketones NEGATIVE Urine Nitrite NEGATIVE Urine Bilirubin NEGATIVE Urine Urobilinogen 2+ H Urine Leukocyte Esterase NEGATIVE Urine Microscopic RBC 2 Urine Microscopic WBC 8 H Urine Squamous Epithelial Cells FEW Urine Mucus FEW A Urine Hemoglobin NEGATIVE Urine Glucose NEGATIVE Urine Total Protein NEGATIVE White Blood Count 7.1 Red Blood Count 4.10 L Hemoglobin 12.8 L Hematocrit 40.0 L Mean Corpuscular Volume 97.6 Mean Corpuscular Hemoglobin 31.2 Mean Corpuscular Hemoglobin Concent 32.0 Red Cell Distribution Width 12.3 Platelet Count 116 L Mean Platelet Volume 11.5 H Immature Granulocytes % 0.400 Neutrophils % 44.8 Lymphocytes % 42.4 Monocytes % 12.0 H Eosinophils % 0.1 Basophils % 0.3 Nucleated Red Blood Cells % 0.0 Immature Granulocytes # 0.030 Neutrophils # 3.2 Lymphocytes # 3.0 H Monocytes # 0.9 Eosinophils # 0.0 Basophils # 0.0 Nucleated Red Blood Cells # 0.0 Sodium Level 140 Potassium Level 3.6 Chloride Level 104 Carbon Dioxide Level 30 Anion Gap 6 Blood Urea Nitrogen 11 Creatinine 0.83 Est Glomerular Filtrat Rate mL/min > 60 Glucose Level 88 Calcium Level 9.1 Total Bilirubin 0.8 Direct Bilirubin 0.00 Indirect Bilirubin 0.8 Aspartate Amino Transf (AST/SGOT) 124 H Alanine Aminotransferase (ALT/SGPT) 124 H Alkaline Phosphatase 84 Troponin I < 0.012 Total Protein 8.2 H Albumin 4.0 Globulin 4.20 H Albumin/Globulin Ratio 0.95 Lipase 205 HPI/ROS Admit Date/Time Admit Date/Time Hx of Present Illness This is a 57-year-old male with past medical history of hypertension, HIV, substance abuse and homelessness. The patient came to the emergency room with chief complaint of persistent coughing and spitting up phlegm. The patient also complained of a few episodes of diarrhea. The patient denied any abdominal pain. The patient was also complaining of bilateral lower extremity edema and bilateral upper extremity edema. The patient denied any fevers or chills. In the emergency room, the patient underwent a CT scan of the abdomen and pelvis that showed prominent nondilated fluid-filled loops of small bowel in a fairly diffuse fashion consistent with ileus. The CT also revealed moderate to circumferential urinary wall thickening. The patient was admitted to inpatient setting for further treatment and evaluation. Of note, the patient complained of vomiting in the emergency room. However, he denied any vomiting and abdominal pain to me. The patient has been noncompliant with his HIV medications. ROS Constitutional: no complaints Eyes: no complaints ENT: no complaints Respiratory: cough, sputum Cardiovascular: no complaints Gastrointestinal: diarrhea Genitourinary: no complaints Musculoskeletal: no complaints Skin: no complaints Neurologic: no complaints Endocrine: no complaints Lymphatic: no complaints Psychological: no complaints Immunologic: immunodeficiency PMH/Family/Social Past Medical History 1. Hypertension. 2. HIV. 3. Substance abuse. Medications Current Medications Diclofenac Sodium (Voltaren 1% Gel) 2 gm TID TP ; Start 11/08/18 at 09:00 Triamcinolone Acetonide (Kenalog 0.5% Cr) 1 applic BID TOP ; Start 11/08/18 at 09:00 Dextrose/Sodium Chloride 1,000 ml @ 75 mls/hr [id number] IV Last administered on 11/08/18at 07:51; Admin Dose 75 MLS/HR; Start 11/08/18 at 06:49 IV Flush (NS 3 ml) 3 ml PER PROTOCOL IV ; Start 11/08/18 at 07:00 Ondansetron HCl (Zofran Inj) 4 mg Q6H PRN IV NAUSEA/VOMITING; Start 11/08/18 at 07:00 Morphine Sulfate (morphine) 2 mg Q4H PRN IV .SEVERE PAIN 7-10; Start 11/08/18 at 07:00 Pantoprazole (Protonix Iv) 40 mg DAILY@06 IV ; Start 11/09/18 at 06:00 Enoxaparin Sodium (Lovenox) 40 mg DAILY SC Last administered on 11/08/18at 09:29; Admin Dose 40 MG; Start 11/08/18 at 09:00 Metoclopramide HCl (Reglan) 10 mg Q6 IV Last administered on 11/08/18at 07:50; A dmin Dose 10 MG; Start 11/08/18 at 07:00 Coded Allergies: No Known Allergy (Unverified , 11/08/18) Past Surgical History Past Surgical Hx: appendectomy, other (Left knee surgery) Social History The patient is currently homeless. Alcohol Use: none Smoking Status: Current every day smoker Drug Use: other (Methamphetamines) Exam/Review of Systems Vital Signs Vitals Vital Signs Date Temp Pulse Resp B/P (MAP) Pulse Ox O2 O2 Flow FiO2 Time Delivery Rate 11/08/18 72 16 165/99 97 Room Air 11:03 (121) 11/08/18 98.2 01:13 Exam Exam General: Adequately build 57 year-old male lying in bed in no apparent distress. HEENT: Normocephalic, atraumatic. Eyes: Anicteric sclerae, conjunctivae clear. ENT: Nasal septum midline, oral mucosa moist. Neck supple, no JVD noticed. Respiratory: Bilaterally diminished breath sounds. No use of accessory muscles of respiration. No adventitious breath sounds. Cardiovascular: S1, S2 heard. Regular rate and rhythm. Abdomen: Nontender, and nondistended. Genitourinary: Deferred. Extremities: No cyanosis, no clubbing. Bilateral lower extremity edema. B/L upper extremity edema. Neurologic: Cranial nerves II through XII grossly intact. The patient is awake, alert, and oriented. ELLIOT SEBASTIAN NP Nov 08, 2018 11:25
[2018-11-08 14:30] VITALS: BP 156/95; PULSE 80; RESP 16
[2018-11-08 15:05] VITALS: Ht 185.4 cm; Wt 99.5 kg
[2018-11-08] MEDS ORDERED: hydrALAzine 20 MG INJ IV PRN (15:30)
[2018-11-08] MEDS ORDERED: SOD CHLORIDE 0.9% 1,000 ML IV SCH (17:00)
[2018-11-08 19:58] VITALS: BP 140/77; PULSE 91; RESP 18
[2018-11-08] MEDS: TAMSULOSIN (SR) 0.4 MG CAP PO SCH (21:11)
[2018-11-08] MEDS: DUTASTERIDE 0.5 MG CAP PO SCH (21:11)
[2018-11-08] MEDS: GABAPENTIN 300 MG CAP PO SCH (21:12)
[2018-11-08] MEDS ORDERED: morphine LIQ (10 MG/5 ML) CUP PO PRN (22:30)
[2018-11-09 01:54] VITALS: BP 131/67; PULSE 92; RESP 20
[2018-11-09] MEDS: PANTOPRAZOLE 40 MG INJ IV SCH (06:10)
[2018-11-09] MEDS: METOCLOPRAMIDE 10 MG INJ IV SCH ×3 (06:10→17:33)
[2018-11-09 08:46] VITALS: BP 135/80; PULSE 89; RESP 18
[2018-11-09] MEDS ORDERED: TAMSULOSIN HCL PO SCH (09:00)
[2018-11-09] MEDS ORDERED: DUTASTERIDE PO SCH (09:00)
[2018-11-09] MEDS ORDERED: [UNRECOGNIZED DRUG - OTHER] PO SCH (09:00)
[2018-11-09] MEDS: FERROUS SULFATE (EC) 325 MG TAB PO SCH (09:04)
[2018-11-09] MEDS: GABAPENTIN 300 MG CAP PO SCH ×3 (09:04→20:41)
[2018-11-09] MEDS: LISINOPRIL 20 MG TAB PO SCH (09:05)
[2018-11-09] MEDS: ENOXAPARIN 40 MG/0.4 ML SYG SC SCH (09:05)
[2018-11-09] MEDS: DICLOFENAC SODIUM 1% GEL 100 GM TUBE TP SCH ×3 (09:06→20:41)
[2018-11-09] MEDS: TRIAMCINOLONE ACET 0.5% 15 GM CR TOP SCH ×2 (09:06→20:41)
[2018-11-09] MEDS ORDERED: POLYETHYLENE GLYCOL 3350 119 GM POWDER PO ONE (11:30)
[2018-11-09 13:47] VITALS: BP 157/86; PULSE 75; RESP 19
--- NOTE | 2018-11-09 16:18 | PN ---
Date/Time of Note Date/Time of Note DATE: 11/09/18 TIME: 16:18 Assessment/Plan VTE Prophylaxis Risk score (from Nsg)>0 risk: 1 SCD applied (from Nsg): Yes Pharmacological prophylaxis: LMWH Lines/Catheters IV Catheter Type (from Nrsg): Peripheral IV Assessment/Plan Hospital Course SUBJECTIVE: The patient's diet was advanced to today. The patient is able to tolerate a regular diet without any significant gastrointestinal symptoms. OBJECTIVE: Physical Exam General: Adequately build 57 year-old male lying in bed in no apparent distress. HEENT: Normocephalic, atraumatic. Eyes: Anicteric sclerae, conjunctivae clear. ENT: Nasal septum midline, oral mucosa moist. Neck supple, no JVD noticed. Respiratory: Bilaterally diminished breath sounds. No use of accessory muscles of respiration. No adventitious breath sounds. Cardiovascular: S1, S2 heard. Regular rate and rhythm. Abdomen: Nontender, and nondistended. Genitourinary: Deferred. Extremities: No cyanosis, no clubbing. Bilateral lower extremity edema. Neurologic: Cranial nerves II through XII grossly intact. The patient is awake, alert, and oriented. Labs & Vitals per chart ASSESSMENT & PLAN 57-year-old male with comorbidities including HIV who is noncompliant with his HIV medications, hypertension, and substance abuse who came to the emergency room with vague complaints, who was found to have possible underlying ileus in the CT scan and was admitted to inpatient setting for further treatment and evaluation. 1. Possible underlying ileus. -The patient on prokinetic therapy. -Able to tolerate a regular consistency diet. 2. Essential hypertension. -Continue antihypertensives. 3. HIV positive status -Continue antiretroviral medications -CD4 count 437. 4. Edema of bilateral upper and lower extremities -Ultrasound negative for any DVT. 5. Substance abuse. -Cessation will be advised. 6. Prostate hypertrophy. -Continue tamsulosin and dutasteride. 7. Homelessness. -Social work consult. 8. Debility. -Physical therapy evaluation. 9. Fluids, electrolytes, and nutrition. -Regular diet. 10. DVT prophylaxis -Subcutaneous Lovenox. Plan: -Continue regular diet. -Obtain physical therapy evaluation. The patient was seen in collaboration with Dr. Pate. Result Diagram: 11/09/18 0546 11/09/1846 Results 24hrs Laboratory Tests Test 11/09/18 05:46 White Blood Count 5.5 # Red Blood Count 3.88 L Hemoglobin 12.1 L Hematocrit 37.2 L Mean Corpuscular Volume 95.9 Mean Corpuscular Hemoglobin 31.2 Mean Corpuscular Hemoglobin Concent 32.5 Red Cell Distribution Width 12.1 Platelet Count 108 L Mean Platelet Volume 11.9 H Immature Granulocytes % 0.200 Neutrophils % 39.6 Lymphocytes % 47.2 Monocytes % 12.8 H Eosinophils % 0.0 Basophils % 0.2 Nucleated Red Blood Cells % 0.0 Immature Granulocytes # 0.010 Neutrophils # 2.2 Lymphocytes # 2.6 Monocytes # 0.7 Eosinophils # 0.0 Basophils # 0.0 Nucleated Red Blood Cells # 0.0 Sodium Level 137 Potassium Level 3.7 Chloride Level 104 Carbon Dioxide Level 28 Anion Gap 5 Blood Urea Nitrogen 11 Creatinine 0.84 Est Glomerular Filtrat Rate mL/min > 60 Glucose Level 85 Hemoglobin A1c 4.8 Calcium Level 8.5 Phosphorus Level 3.8 Magnesium Level 1.8 Total Bilirubin 0.8 Direct Bilirubin 0.00 Indirect Bilirubin 0.8 Aspartate Amino Transf (AST/SGOT) 115 H Alanine Aminotransferase (ALT/SGPT) 102 H Alkaline Phosphatase 67 B-Type Natriuretic Peptide 243 H Total Protein 6.7 # Albumin 3.1 L Globulin 3.60 H Albumin/Globulin Ratio 0.86 Prostate Specific Antigen 0.1 Exam/Review of Systems Exam Vitals Vital Signs Date Temp Pulse Resp B/P (MAP) Pulse Ox O2 O2 Flow FiO2 Time Delivery Rate 11/09/18 99.0 75 19 157/86 96 13:47 (109) 11/09/18 Room Air 01:54 Intake and Output 11/08/18 11/08/18 11/09/18 1515:00 23:00 07:00 IntakeIntake Total 320 ml 870 ml OutputOutput Total 300 ml BalanceBalance 320 ml 570 ml Results Results 24hrs Laboratory Tests Test 11/09/18 05:46 White Blood Count 5.5 # Red Blood Count 3.88 L Hemoglobin 12.1 L Hematocrit 37.2 L Mean Corpuscular Volume 95.9 Mean Corpuscular Hemoglobin 31.2 Mean Corpuscular Hemoglobin Concent 32.5 Red Cell Distribution Width 12.1 Platelet Count 108 L Mean Platelet Volume 11.9 H Immature Granulocytes % 0.200 Neutrophils % 39.6 Lymphocytes % 47.2 Monocytes % 12.8 H Eosinophils % 0.0 Basophils % 0.2 Nucleated Red Blood Cells % 0.0 Immature Granulocytes # 0.010 Neutrophils # 2.2 Lymphocytes # 2.6 Monocytes # 0.7 Eosinophils # 0.0 Basophils # 0.0 Nucleated Red Blood Cells # 0.0 Sodium Level 137 Potassium Level 3.7 Chloride Level 104 Carbon Dioxide Level 28 Anion Gap 5 Blood Urea Nitrogen 11 Creatinine 0.84 Est Glomerular Filtrat Rate mL/min > 60 Glucose Level 85 Hemoglobin A1c 4.8 Calcium Level 8.5 Phosphorus Level 3.8 Magnesium Level 1.8 Total Bilirubin 0.8 Direct Bilirubin 0.00 Indirect Bilirubin 0.8 Aspartate Amino Transf (AST/SGOT) 115 H Alanine Aminotransferase (ALT/SGPT) 102 H Alkaline Phosphatase 67 B-Type Natriuretic Peptide 243 H Total Protein 6.7 # Albumin 3.1 L Globulin 3.60 H Albumin/Globulin Ratio 0.86 Prostate Specific Antigen 0.1 Medications Medication Current Medications Diclofenac Sodium (Voltaren 1% Gel) 2 gm TID TP Last administered on 11/09/18 12:35; Admin Dose 2 GM; Start 11/08/18 at 09:00 Triamcinolone Acetonide (Kenalog 0.5% Cr) 1 applic BID TOP Last administered on 11/09/18 09:06; Admin Dose 1 APPLIC; Start 11/08/18 at 09:00 IV Flush (NS 3 ml) 3 ml PER PROTOCOL IV ; Start 11/08/18 at 07:00 Ondansetron HCl (Zofran Inj) 4 mg Q6H PRN IV NAUSEA/VOMITING Last administered on 11/08/18 12:03; Admin Dose 4 MG; Start 11/08/18 at 07:00 Pantoprazole (Protonix Iv) 40 mg DAILY@06 IV Last administered on 11/09/18 06:10; Admin Dose 40 MG; Start 11/09/18 at 06:00 Enoxaparin Sodium (Lovenox) 40 mg DAILY SC Last administered on 11/09/18 09:05; Admin Dose 40 MG; Start 11/08/18 at 09:00 Metoclopramide HCl (Reglan) 10 mg Q6 IV Last administered on 11/09/18 12:34; Admin Dose 10 MG; Start 11/08/18 at 07:00 Ferrous Sulfate (Ferrous Sulfate (Ec)) 325 mg DAILY PO Last administered on 11/09/18 09:04; Admin Dose 325 MG; Start 11/09/18 at 09:00 Gabapentin (Neurontin) 600 mg TID PO Last administered on 11/09/18 12:35; Admin Dose 600 MG; Start 11/08/18 at 21:00 Lisinopril (Zestril) 40 mg DAILY PO Last administered on 11/09/18 09:05; Admin Dose 40 MG; Start 11/09/18 at 09:00 Hydralazine HCl (Apresoline) 10 mg Q6H PRN IV SBP>160; Start 11/08/18 at 15:30 Dutasteride (Avodart) 0.5 mg QPM PO Last administered on 11/08/18 21:11; Admin Dose 0.5 MG; Start 11/08/18 at 21:00 Tamsulosin HCl (Flomax) 0.4 mg DAILY@21 PO Last administered on 11/08/18 21:11; Admin Dose 0.4 MG; Start 11/08/18 at 21:00 Morphine Sulfate (morphine) 6 mg Q4H PRN PO SEVERE PAIN LEVEL 7-10; Start 11/08/18 at 22:30 ELLIOT SEBASTIAN NP Nov 09, 2018 16:18
[2018-11-09 20:00] VITALS: BP 125/73; PULSE 90; RESP 18
[2018-11-09] MEDS: DUTASTERIDE 0.5 MG CAP PO SCH (20:41)
[2018-11-09] MEDS: TAMSULOSIN (SR) 0.4 MG CAP PO SCH (20:41)
[2018-11-10 02:00] VITALS: BP 164/79; PULSE 80; RESP 18
[2018-11-10 02:35] VITALS: BP 143/83; PULSE 80
[2018-11-10] MEDS: METOCLOPRAMIDE 10 MG INJ IV SCH ×2 (06:29)
[2018-11-10] MEDS: PANTOPRAZOLE 40 MG INJ IV SCH (06:29)
[2018-11-10 08:08] VITALS: BP 149/87; PULSE 89; RESP 20
[2018-11-10] MEDS: GABAPENTIN 300 MG CAP PO SCH ×3 (08:20→20:51)
[2018-11-10] MEDS: TRIAMCINOLONE ACET 0.5% 15 GM CR TOP SCH ×2 (08:20→20:51)
[2018-11-10] MEDS: FERROUS SULFATE (EC) 325 MG TAB PO SCH (08:20)
[2018-11-10] MEDS: DICLOFENAC SODIUM 1% GEL 100 GM TUBE TP SCH ×3 (08:20→20:51)
[2018-11-10] MEDS: LISINOPRIL 20 MG TAB PO SCH (08:21)
[2018-11-10] MEDS: ENOXAPARIN 40 MG/0.4 ML SYG SC SCH (08:23)
--- NOTE | 2018-11-10 10:08 | PN ---
Date/Time of Note Date/Time of Note DATE: 11/10/18 TIME: 10:06 Assessment/Plan VTE Prophylaxis Risk score (from Nsg)>0 risk: 1 SCD applied (from Nsg): Yes Pharmacological prophylaxis: LMWH Lines/Catheters IV Catheter Type (from Nrs): Peripheral IV Assessment/Plan Hospital Course SUBJECTIVE: Tolerating regular diet. Complains of diarrhea. OBJECTIVE: Physical Exam General: Adequately build 57 year-old male lying in bed in no apparent distress. HEENT: Normocephalic, atraumatic. Eyes: Anicteric sclerae, conjunctivae clear. ENT: Nasal septum midline, oral mucosa moist. Neck supple, no JVD noticed. Respiratory: Bilaterally diminished breath sounds. No use of accessory muscles of respiration. No adventitious breath sounds. Cardiovascular: S1, S2 heard. Regular rate and rhythm. Abdomen: Nontender, and nondistended. Genitourinary: Deferred. Extremities: No cyanosis, no clubbing. Bilateral lower extremity edema. Neurologic: Cranial nerves II through XII grossly intact. The patient is awake, alert, and oriented. Labs & Vitals per chart ASSESSMENT & PLAN 57-year-old male with comorbidities including HIV who is noncompliant with his HIV medications, hypertension, and substance abuse who came to the emergency room with vague complaints, who was found to have possible underlying ileus in the CT scan and was admitted to inpatient setting for further treatment and evaluation. 1. Possible underlying ileus Vs enteritis. -DC prokinetic therapy since the patient has underlying diarrhea. -Able to tolerate a regular consistency diet. -Send stool studies. -Obtain ID consult. 2. Essential hypertension. -Continue antihypertensives. 3. HIV positive status -Continue antiretroviral medications -CD4 count 437. -ID evaluation. 4. Edema of bilateral upper and lower extremities -Ultrasound negative for any DVT. 5. Substance abuse. -Cessation will be advised. 6. Prostate hypertrophy. -Continue tamsulosin and dutasteride. 7. Homelessness. -Social work consult. 8. Debility. -Physical therapy evaluation ongoing. 9. Fluids, electrolytes, and nutrition. -Regular diet. 10. DVT prophylaxis -Subcutaneous Lovenox. Plan: -Continue regular diet. -Continue physical therapy evaluation. -Discontinue prokinetics. -Send stool studies. -Obtain ID consult. The patient was seen in collaboration with Dr. Pate. Result Diagram: 11/10/18 0536 11/10/1836 Results 24hrs Laboratory Tests Test 11/10/18 05:36 White Blood Count 4.3 #L Red Blood Count 3.93 L Hemoglobin 12.0 L Hematocrit 37.7 L Mean Corpuscular Volume 95.9 Mean Corpuscular Hemoglobin 30.5 Mean Corpuscular Hemoglobin Concent 31.8 L Red Cell Distribution Width 11.9 Platelet Count 108 L Mean Platelet Volume 12.4 H Immature Granulocytes % 0.200 Neutrophils % 47.7 Lymphocytes % 38.0 Monocytes % 13.4 H Eosinophils % 0.5 Basophils % 0.2 Nucleated Red Blood Cells % 0.0 Immature Granulocytes # 0.010 Neutrophils # 2.1 Lymphocytes # 1.6 Monocytes # 0.6 Eosinophils # 0.0 Basophils # 0.0 Nucleated Red Blood Cells # 0.0 Sodium Level 142 Potassium Level 3.7 Chloride Level 109 Carbon Dioxide Level 25 Anion Gap 8 Blood Urea Nitrogen 13 Creatinine 0.74 Est Glomerular Filtrat Rate mL/min > 60 Glucose Level 95 Calcium Level 8.3 L Phosphorus Level 3.2 Magnesium Level 1.8 Exam/Review of Systems Exam Vitals Vital Signs Date Temp Pulse Resp B/P (MAP) Pulse Ox O2 O2 Flow FiO2 Time Delivery Rate 11/10/18 98.2 89 20 149/87 97 Room Air 08:08 (107) Intake and Output 11/09/18 11/09/18 11/10/18 1515:00 23:00 07:00 IntakeIntake Total 600 ml 400 ml 240 ml OutputOutput Total 600 ml 900 ml BalanceBalance 0 ml 400 ml -660 ml Results Results 24hrs Laboratory Tests Test 11/10/18 05:36 White Blood Count 4.3 #L Red Blood Count 3.93 L Hemoglobin 12.0 L Hematocrit 37.7 L Mean Corpuscular Volume 95.9 Mean Corpuscular Hemoglobin 30.5 Mean Corpuscular Hemoglobin Concent 31.8 L Red Cell Distribution Width 11.9 Platelet Count 108 L Mean Platelet Volume 12.4 H Immature Granulocytes % 0.200 Neutrophils % 47.7 Lymphocytes % 38.0 Monocytes % 13.4 H Eosinophils % 0.5 Basophils % 0.2 Nucleated Red Blood Cells % 0.0 Immature Granulocytes # 0.010 Neutrophils # 2.1 Lymphocytes # 1.6 Monocytes # 0.6 Eosinophils # 0.0 Basophils # 0.0 Nucleated Red Blood Cells # 0.0 Sodium Level 142 Potassium Level 3.7 Chloride Level 109 Carbon Dioxide Level 25 Anion Gap 8 Blood Urea Nitrogen 13 Creatinine 0.74 Est Glomerular Filtrat Rate mL/min > 60 Glucose Level 95 Calcium Level 8.3 L Phosphorus Level 3.2 Magnesium Level 1.8 Medications Medication Current Medications Diclofenac Sodium (Voltaren 1% Gel) 2 gm TID TP Last administered on 11/10/18 08:20; Admin Dose 2 GM; Start 11/08/18 at 09:00 Triamcinolone Acetonide (Kenalog 0.5% Cr) 1 applic BID TOP Last administered on 11/10/18 08:20; Admin Dose 1 APPLIC; Start 11/08/18 at 09:00 IV Flush (NS 3 ml) 3 ml PER PROTOCOL IV ; Start 11/08/18 at 07:00 Ondansetron HCl (Zofran Inj) 4 mg Q6H PRN IV NAUSEA/VOMITING Last administered on 11/08/18 12:03; Admin Dose 4 MG; Start 11/08/18 at 07:00 Pantoprazole (Protonix Iv) 40 mg DAILY@06 IV Last administered on 11/10/18 06:29; Admin Dose 40 MG; Start 11/09/18 at 06:00 Enoxaparin Sodium (Lovenox) 40 mg DAILY SC Last administered on 11/10/18 08:23; Admin Dose 40 MG; Start 11/08/18 at 09:00 Metoclopramide HCl (Reglan) 10 mg Q6 IV Last administered on 11/10/18 06:29; Admin Dose 10 MG; Start 11/08/18 at 07:00 Ferrous Sulfate (Ferrous Sulfate (Ec)) 325 mg DAILY PO Last administered on 11/10/18 08:20; Admin Dose 325 MG; Start 11/09/18 at 09:00 Gabapentin (Neurontin) 600 mg TID PO Last administered on 11/10/18 08:20; Admin Dose 600 MG; Start 11/08/18 at 21:00 Lisinopril (Zestril) 40 mg DAILY PO Last administered on 11/10/18 08:21; Admin Dose 40 MG; Start 11/09/18 at 09:00 Hydralazine HCl (Apresoline) 10 mg Q6H PRN IV SBP>160; Start 11/08/18 at 15:30 Dutasteride (Avodart) 0.5 mg QPM PO Last administered on 11/09/18at 20:41; Admin Dose 0.5 MG; Start 11/08/18 at 21:00 Tamsulosin HCl (Flomax) 0.4 mg DAILY@21 PO Last administered on 11/09/18at 20:41; Admin Dose 0.4 MG; Start 11/08/18 at 21:00 Morphine Sulfate (morphine) 6 mg Q4H PRN PO SEVERE PAIN LEVEL 7-10; Start 11/08/18 at 22:30 ELLIOT SEBASTIAN NP Nov 10, 2018 10:08
--- NOTE | 2018-11-10 13:10 | CONS ---
DATE OF ADMISSION: 11/10/2018 DATE OF CONSULTATION: 11/10/2018 REASON FOR CONSULTATION: Antibiotic management. HISTORY OF PRESENT ILLNESS: Luther Sagastume is a 57-year-old male who comes in with vomiting, swelli ng in both legs and a cough. The patient has a history of HIV and has not been on his antiretroviral medications for many months secondary to financial reasons. He has had vomiting intermittently over the last week, 3 or 4 times per day, nonbilious, nonbloody. He also had abdominal pain, nonlocalizi ng, ozub-oz-fhluaxnh intensity with 2 to 3 episodes of loose stools as well. He complains of abdomin al distention. PAST SURGICAL HISTORY: Status post appendectomy, status post cataract surgery. PAST MEDICAL HISTORY: HIV, diabetes, hyperlipidemia, and hepatitis C. The patient also has hyperten joshua. FAMILY HISTORY: Noncontributory. SOCIAL HISTORY: He uses methamphetamine. He does smoke. He is an everyday smoker. He does not dri nk. ALLERGIES: NONE TO PENICILLIN, SULFA OR FOODS. MEDICATIONS: Per chart. REVIEW OF SYSTEMS: Noncontributory. PHYSICAL EXAMINATION: GENERAL: The patient is a well-developed, well-nourished male who is alert, responsive, in no acute distress. VITAL SIGNS: Stable. He is afebrile. His blood pressure was slightly elevated at 173/96 on admissi on. SKIN: Without generalized rash. HEENT: Within normal limits. NECK: Supple. LYMPH NODES: None palpable. CHEST: Decreased breath sounds at the bases. HEART: Without murmur or gallop. ABDOMEN: Soft, nontender. He has some mild flank tenderness without organosplenomegaly or masses. EXTREMITIES: Without cyanosis, clubbing, or edema. RECTAL EXAM: Deferred. GENITAL EXAM: Deferred. NEUROLOGIC EVALUATION: No focal neurological abnormality. ANCILLARY LABORATORY DATA: White count is 7.1, hemoglobin and hematocrit of 12.8 and 40, platelet co unt 116,000. BUN and creatinine 11/0.83. Blood sugar of 83. Urinalysis shows negative nitrite, neg ative leukocyte esterase. IMAGING STUDIES: Chest x-ray shows no acute abnormalities. IMPRESSION AND PLAN: At this point, the patient has an ileus with intractable abdominal pain. He wa s admitted. Currently, he is tolerating a regular diet, complaints of diarrhea. In essence, he is a 57-year-old male with comorbidities including human immunodeficiency virus (HIV), noncompliant with his medications, Also with substance abuse. He had underlying ileus. His computed tomography (CT) scan of the abdomen shows prominent, nondilated, fluid-filled loops of small bowel in a fairly diffus e fashion, consistent with ileus. Enteritis cannot be excluded. No calcified urinary calculi or obs tructive uropathy. Moderate circumferential urinary wall thickening may be due to chronic obstructio n. Cystitis cannot be excluded. Mildly enlarged prostate gland, small focal consolidation in lingul a, left upper lobe, may be due to atelectasis. Acute infiltrate cannot be excluded. Exxx-os-bdgjqau e bilateral inguinal lymphadenopathy. Recommend clinical correlation and followup. I would continue him on current therapy, off of antibiotics. I will dictate my findings to the hospitalist. Dictated By: RIKKI DUCKWORTH MD, JD/ANDREW Conf#: [id number] DID#: [id number] CC: IFRAH PRESTON MD;*EndCC*
[2018-11-10 14:14] VITALS: BP 163/94; PULSE 94; RESP 20
[2018-11-10 20:00] VITALS: BP 159/95; PULSE 87; RESP 18
[2018-11-10] MEDS: DUTASTERIDE 0.5 MG CAP PO SCH (20:51)
[2018-11-10] MEDS: TAMSULOSIN (SR) 0.4 MG CAP PO SCH (20:51)
[2018-11-11 02:00] VITALS: BP 142/88; PULSE 90; RESP 18
[2018-11-11] MEDS: PANTOPRAZOLE 40 MG INJ IV SCH (06:17)
[2018-11-11 08:20] VITALS: BP 144/89; PULSE 86; RESP 18
[2018-11-11] MEDS: ENOXAPARIN 40 MG/0.4 ML SYG SC SCH (08:40)
[2018-11-11] MEDS: FERROUS SULFATE (EC) 325 MG TAB PO SCH (08:40)
[2018-11-11] MEDS: GABAPENTIN 300 MG CAP PO SCH ×3 (08:40→20:48)
[2018-11-11] MEDS: TRIAMCINOLONE ACET 0.5% 15 GM CR TOP SCH ×2 (08:41→20:53)
[2018-11-11] MEDS: DICLOFENAC SODIUM 1% GEL 100 GM TUBE TP SCH ×3 (08:41→20:53)
[2018-11-11] MEDS: LISINOPRIL 20 MG TAB PO SCH (08:41)
--- NOTE | 2018-11-11 13:41 | CONS ---
Assessment/Plan Assessment/Plan Hospital Course (Demo Recall) ID NOTE CURRENT ABX: =>OFF ABX --s/p ABX x 3 days s/p Vanco IV/Zosyn/Levaquin 11/11/18 1122 11/11/18 1122 24H INTERVAL SUMMARY * Still has diarrhea despite 3 days ABX w/(-)C.Diff. He may have HIV associated diarrhea -- he has been off ARV meds, recently went back to [facility] ([facility]) were he follows for his HIV and was given new RX for AVR "BIKTARVY" -- he has not had a chance to fill this med at the [facility]. He has no ARV meds with him. He should not be started on alternative ARV during this admission. * He has BLEXT edema w/bilateral inguinal lymphadenopathy -- no evidence cellulitis BLEXT. Etiology may be related to HIV viremia since his HIV VL is elevated to 71,4000; alternative Dx such as lymphoma to be considered. DIAGNOSTICS * 11/08/18 CT ABD-PEL: * 1. Prominent nondilated fluid filled loops of small bowel in a fairly diffuse fashion consistent with ileus. Enteritis cannot be excluded. * 2. No calcified urinary calculi obstructive uropathy. * 3. Moderate circumferential urinary wall thickening may be due to chronic obstruction. Cystitis cannot be excluded. Unchanged mild enlarged prostate gland. Correlation with PSA levels may be helpful. * 4. Small focal consolidation lingula left upper lobe may all be due to atelectasis. Acute infiltrate cannot be excluded. * 5. Mild to moderate bilateral inguinal lymphadenopathy. Recommend clinical correlation and follow-up. * 11/08/18 BLEXT US (-)DVT * 11/08/18 CXR: No acute intrathoracic abnormality identified. MICRO * 11/10/18 (-)C.DIFF * 11/08/18 Urine Cx(-) * 11/07/18 BCx(-) PHYSICAL EXAMINATION: GENERAL: VSS, NAD HEENT: AT, NC, anicteric, no thrush NECK: SUPPLE CHEST: Equal chest rise without dyspnea HEART: Rdial pulse RRR ABDOMEN: Soft, NT : Normal Male -- bilateral groin adenopathy - non-tender EXT: Warm w/BLEXT mild edema SKIN: no RASH no diaphoresis ID ASSESSMENT: 57 yo M admit with: 1. HIV(+) -- since ~2001 w/CD4# 437 -> HIV VL 71,400 = NONCOMPLIANCE w/daily ARV meds. 2. Ileus with intractable abdominal pain. * Possible enteritis w/diarrhea 3. Essential HTN 4. Edema of bilateral upper and lower extremities * -Ultrasound negative for any DVT. 5. Mild to Moderate bilateral inguinal lymphadenopathy -- DDX HIV LYMPHADENOPATHY vs alternative Dx ?Lymphoma * He has BLEXT edema w/bilateral inguinal lymphadenopathy -- no evidence cellulitis BLEXT. Etiology may be related to HIV viremia since his HIV VL is elevated to 71,4000; alternative Dx such as lymphoma to be considered. 6. Prostatomegaly: Tamsulosin and dutasteride onboard * PSA 0.1 (WNL) 7. Chronic lumbago w/intermittent sciatica * MRI L-SPINE SEP 2016: signal abnormality involving L5-S1 vertebral bodies which were nonspecific. There is also severe narrowing of the bilateral L4-L5 and L5-S1 foramina. 8. Substance abuse: Amphetamines (Cocaine/METH) 9. History of hepatitis C. 10. Substance abuse with cocaine and amphetamines. Patient advised to stop using. 11. Homelessness.-Social work consult. 12. Chronic debility 13. Hx of Left Knee surgery 14. Chronic dry skin INVASIVES: PIV ABX ALLERGY: KNDA CURRENT ABX: => =>OFF ABX --s/p ABX x 3 days s/p Vanco IV/Zosyn/Levaquin ID RECOMMENDATIONS/PLAN: 1. Start Rifaximin + Lactobacillus and probiotics for persistent diarrhea 2. Consider GI referral for COLONOSCOPY r/o alternative etiology to diarrhea w/colon bx IBS?-- he had similar episode in past 3. BLEXT lymphadenopathy w/BLEXT edema ==> Etiology may be related to HIV viremia since his HIV VL is elevated to 71,4000; alternative Dx such as lymphoma are in the differential diagnosis * Consider surgical consult for surgical node removal and biopsy vs referral to outpatient follow up for biopsy. 4. OFF ARV MEDS for HIV w/adequate CD4# 437 == NO ALTERNATIVE ARV MEDS TO BE STARTED DURING INPATIENT STAY * He recently went back to [facility] ([facility]) were he follows for his HIV and was given new RX for AVR "BIKTARVY" -- he has not had a chance to fill this med at the [facility]. He has no ARV meds with him. He should not be started on alternative ARV during this admission. He has no one to assist him with filling his Rx for BIKTARY at [facility] -- he should fill on DC from inpatient stay. . Consultation Date/Type/Reason Admit Date/Time Nov 10, 2018 at 10:11 Initial Consult Date Date/Time of Note DATE: 11/11/18 TIME: 13:40 Exam/Review of Systems Exam Vitals Vital Signs Date Temp Pulse Resp B/P (MAP) Pulse Ox O2 O2 Flow FiO2 Time Delivery Rate 11/11/18 98.1 86 18 144/89 97 Room Air 08:20 (107) Intake and Output 11/10/18 11/10/18 11/11/18 1515:00 23:00 07:00 IntakeIntake Total 800 ml 690 ml 450 ml OutputOutput Total 950 ml 500 ml 400 ml BalanceBalance -150 ml 190 ml 50 ml Results Result Diagram: 11/11/18 1122 11/11/18 1122 Results 24hrs Laboratory Tests Test 11/11/18 11:22 White Blood Count 4.8 Red Blood Count 3.97 L Hemoglobin 12.3 L Hematocrit 38.4 L Mean Corpuscular Volume 96.7 Mean Corpuscular Hemoglobin 31.0 Mean Corpuscular Hemoglobin Concent 32.0 Red Cell Distribution Width 11.9 Platelet Count 126 L Mean Platelet Volume 11.6 H Immature Granulocytes % 0.200 Neutrophils % 41.3 Lymphocytes % 45.2 Monocytes % 12.9 H Eosinophils % 0.2 Basophils % 0.2 Nucleated Red Blood Cells % 0.0 Immature Granulocytes # 0.010 Neutrophils # 2.0 Lymphocytes # 2.2 Monocytes # 0.6 Eosinophils # 0.0 Basophils # 0.0 Nucleated Red Blood Cells # 0.0 Sodium Level 139 Potassium Level 3.6 Chloride Level 108 Carbon Dioxide Level 26 Anion Gap 5 Blood Urea Nitrogen 9 Creatinine 0.70 Est Glomerular Filtrat Rate mL/min > 60 Glucose Level 103 Calcium Level 8.3 L Phosphorus Level 3.0 Magnesium Level 1.8 Medications Medication Current Medications Diclofenac Sodium (Voltaren 1% Gel) 2 gm TID TP Last administered on 11/11/18at 12:51; Admin Dose 100 GM; Start 11/08/18 at 09:00 Triamcinolone Acetonide (Kenalog 0.5% Cr) 1 applic BID TOP Last administered on 11/11/18 08:41; Admin Dose 1 APPLIC; Start 11/08/18 at 09:00 IV Flush (NS 3 ml) 3 ml PER PROTOCOL IV ; Start 11/08/18 at 07:00 Ondansetron HCl (Zofran Inj) 4 mg Q6H PRN IV NAUSEA/VOMITING Last administered on 11/08/18 12:03; Admin Dose 4 MG; Start 11/08/18 at 07:00 Pantoprazole (Protonix Iv) 40 mg DAILY@06 IV Last administered on 11/11/18 06:17; Admin Dose 40 MG; Start 11/09/18 at 06:00 Enoxaparin Sodium (Lovenox) 40 mg DAILY SC Last administered on 11/11/18 08:40; Admin Dose 40 MG; Start 11/08/18 at 09:00 Ferrous Sulfate (Ferrous Sulfate (Ec)) 325 mg DAILY PO Last administered on 11/11/18 08:40; Admin Dose 325 MG; Start 11/09/18 at 09:00 Gabapentin (Neurontin) 600 mg TID PO Last administered on 11/11/18 12:51; Admin Dose 600 MG; Start 11/08/18 at 21:00 Lisinopril (Zestril) 40 mg DAILY PO Last administered on 11/11/18 08:41; Admin Dose 40 MG; Start 11/09/18 at 09:00 Hydralazine HCl (Apresoline) 10 mg Q6H PRN IV SBP>160; Start 11/08/18 at 15:30 Dutasteride (Avodart) 0.5 mg QPM PO Last administered on 11/10/18 20:51; Admin Dose 0.5 MG; Start 11/08/18 at 21:00 Tamsulosin HCl (Flomax) 0.4 mg DAILY@21 PO Last administered on 11/10/18 20:51; Admin Dose 0.4 MG; Start 11/08/18 at 21:00 Morphine Sulfate (morphine) 6 mg Q4H PRN PO SEVERE PAIN LEVEL 7-10; Start 11/08/18 at 22:30 DEDRA JORDAN NP Nov 11, 2018 13:41
[2018-11-11 14:50] VITALS: BP 145/75; PULSE 88; RESP 18
[2018-11-11] MEDS: LACTOBACILLUS RHAMNOSUS CAP PO SCH ×2 (15:08→20:48)
--- NOTE | 2018-11-11 15:33 | PN ---
Date/Time of Note Date/Time of Note DATE: 11/11/18 TIME: 15:31 Assessment/Plan VTE Prophylaxis Risk score (from Nsg)>0 risk: 1 SCD applied (from Nsg): Yes Pharmacological prophylaxis: LMWH Lines/Catheters IV Catheter Type (from Nrsg): Peripheral IV Urinary Cath still in place: No Assessment/Plan Hospital Course SUBJECTIVE: Tolerating regular diet. Complains of diarrhea. OBJECTIVE: Physical Exam General: Adequately build 57 year-old male lying in bed in no apparent distress. HEENT: Normocephalic, atraumatic. Eyes: Anicteric sclerae, conjunctivae clear. ENT: Nasal septum midline, oral mucosa moist. Neck supple, no JVD noticed. Respiratory: Bilaterally diminished breath sounds. No use of accessory muscles of respiration. No adventitious breath sounds. Cardiovascular: S1, S2 heard. Regular rate and rhythm. Abdomen: Nontender, and nondistended. Genitourinary: Deferred. Extremities: No cyanosis, no clubbing. Bilateral lower extremity edema. Neurologic: Cranial nerves II through XII grossly intact. The patient is awake, alert, and oriented. Labs & Vitals per chart ASSESSMENT & PLAN 57-year-old male with comorbidities including HIV who is noncompliant with his HIV medications, hypertension, and substance abuse who came to the emergency room with vague complaints, who was found to have possible underlying ileus in the CT scan and was admitted to inpatient setting for further treatment and evaluation. 1. Possible underlying ileus Vs enteritis. -DC prokinetic therapy since the patient has underlying diarrhea. -Able to tolerate a regular consistency diet. -Stool for C. diff negative. Other studies pending. -ID following. 2. Essential hypertension. -Continue antihypertensives. 3. HIV positive status -Continue antiretroviral medications -CD4 count 437. -ID evaluation. 4. Edema of bilateral upper and lower extremities -Ultrasound negative for any DVT. 5. Substance abuse. -Cessation will be advised. 6. Prostate hypertrophy. -Continue tamsulosin and dutasteride. 7. Homelessness. -Social work consult. 8. Debility. -Physical therapy evaluation ongoing. 9. Fluids, electrolytes, and nutrition. -Regular diet. 10. DVT prophylaxis -Subcutaneous Lovenox. Plan: -Continue regular diet. -Continue physical therapy evaluation. -Await stool studies. The patient was seen in collaboration with Dr. Pate. Result Diagram: 11/11/18 1122 11/11/18 1122 Results 24hrs Laboratory Tests Test 11/11/18 11:22 White Blood Count 4.8 Red Blood Count 3.97 L Hemoglobin 12.3 L Hematocrit 38.4 L Mean Corpuscular Volume 96.7 Mean Corpuscular Hemoglobin 31.0 Mean Corpuscular Hemoglobin Concent 32.0 Red Cell Distribution Width 11.9 Platelet Count 126 L Mean Platelet Volume 11.6 H Immature Granulocytes % 0.200 Neutrophils % 41.3 Lymphocytes % 45.2 Monocytes % 12.9 H Eosinophils % 0.2 Basophils % 0.2 Nucleated Red Blood Cells % 0.0 Immature Granulocytes # 0.010 Neutrophils # 2.0 Lymphocytes # 2.2 Monocytes # 0.6 Eosinophils # 0.0 Basophils # 0.0 Nucleated Red Blood Cells # 0.0 Sodium Level 139 Potassium Level 3.6 Chloride Level 108 Carbon Dioxide Level 26 Anion Gap 5 Blood Urea Nitrogen 9 Creatinine 0.70 Est Glomerular Filtrat Rate mL/min > 60 Glucose Level 103 Calcium Level 8.3 L Phosphorus Level 3.0 Magnesium Level 1.8 Exam/Review of Systems Exam Vitals Vital Signs Date Temp Pulse Resp B/P (MAP) Pulse Ox O2 O2 Flow FiO2 Time Delivery Rate 11/11/18 99.0 88 18 145/75 99 Room Air 14:50 (98) Intake and Output 11/10/18 11/10/18 11/11/18 1414:59 22:59 06:59 IntakeIntake Total 800 ml 690 ml 450 ml OutputOutput Total 950 ml 500 ml 400 ml BalanceBalance -150 ml 190 ml 50 ml Results Results 24hrs Laboratory Tests Test 11/11/18 11:22 White Blood Count 4.8 Red Blood Count 3.97 L Hemoglobin 12.3 L Hematocrit 38.4 L Mean Corpuscular Volume 96.7 Mean Corpuscular Hemoglobin 31.0 Mean Corpuscular Hemoglobin Concent 32.0 Red Cell Distribution Width 11.9 Platelet Count 126 L Mean Platelet Volume 11.6 H Immature Granulocytes % 0.200 Neutrophils % 41.3 Lymphocytes % 45.2 Monocytes % 12.9 H Eosinophils % 0.2 Basophils % 0.2 Nucleated Red Blood Cells % 0.0 Immature Granulocytes # 0.010 Neutrophils # 2.0 Lymphocytes # 2.2 Monocytes # 0.6 Eosinophils # 0.0 Basophils # 0.0 Nucleated Red Blood Cells # 0.0 Sodium Level 139 Potassium Level 3.6 Chloride Level 108 Carbon Dioxide Level 26 Anion Gap 5 Blood Urea Nitrogen 9 Creatinine 0.70 Est Glomerular Filtrat Rate mL/min > 60 Glucose Level 103 Calcium Level 8.3 L Phosphorus Level 3.0 Magnesium Level 1.8 Medications Medication Current Medications Diclofenac Sodium (Voltaren 1% Gel) 2 gm TID TP Last administered on 11/11/18 12:51; Admin Dose 100 GM; Start 11/08/18 at 09:00 Triamcinolone Acetonide (Kenalog 0.5% Cr) 1 applic BID TOP Last administered on 11/11/18 08:41; Admin Dose 1 APPLIC; Start 11/08/18 at 09:00 IV Flush (NS 3 ml) 3 ml PER PROTOCOL IV ; Start 11/08/18 at 07:00 Ondansetron HCl (Zofran Inj) 4 mg Q6H PRN IV NAUSEA/VOMITING Last administered on 11/08/18 12:03; Admin Dose 4 MG; Start 11/08/18 at 07:00 Pantoprazole (Protonix Iv) 40 mg DAILY@06 IV Last administered on 11/11/18 06:17; Admin Dose 40 MG; Start 11/09/18 at 06:00 Enoxaparin Sodium (Lovenox) 40 mg DAILY SC Last administered on 11/11/18 08:40; Admin Dose 40 MG; Start 11/08/18 at 09:00 Ferrous Sulfate (Ferrous Sulfate (Ec)) 325 mg DAILY PO Last administered on 11/11/18 08:40; Admin Dose 325 MG; Start 11/09/18 at 09:00 Gabapentin (Neurontin) 600 mg TID PO Last administered on 11/11/18 12:51; Admin Dose 600 MG; Start 11/08/18 at 21:00 Lisinopril (Zestril) 40 mg DAILY PO Last administered on 11/11/18 08:41; Admin Dose 40 MG; Start 11/09/18 at 09:00 Hydralazine HCl (Apresoline) 10 mg Q6H PRN IV SBP>160; Start 11/08/18 at 15:30 Dutasteride (Avodart) 0.5 mg QPM PO Last administered on 11/10/18 20:51; Admin Dose 0.5 MG; Start 11/08/18 at 21:00 Tamsulosin HCl (Flomax) 0.4 mg DAILY@21 PO Last administered on 11/10/18at 20:51; Admin Dose 0.4 MG; Start 11/08/18 at 21:00 Morphine Sulfate (morphine) 6 mg Q4H PRN PO SEVERE PAIN LEVEL 7-10; Start 11/08/18 at 22:30 Lactobacillus Acidophilus/ Rhamnosus (Culturelle) 1 cap BID PO Last administered on 11/11/18at 15:08; Admin Dose 1 CAP; Start 11/11/18 at 14:30 Rifaximin (Xifaxan) 200 mg TID PO ; Start 11/11/18 at 15:00 ELLIOT SEBASTIAN NP Nov 11, 2018 15:33
[2018-11-11] MEDS: RIFAXIMIN 200 MG TAB PO SCH ×2 (17:40→20:48)
[2018-11-11 20:06] VITALS: BP 143/79; PULSE 85; RESP 17
[2018-11-11] MEDS: TAMSULOSIN (SR) 0.4 MG CAP PO SCH (20:48)
[2018-11-11] MEDS: DUTASTERIDE 0.5 MG CAP PO SCH (20:48)
[2018-11-12 02:00] VITALS: BP 128/77; PULSE 95; RESP 18
[2018-11-12] MEDS: PANTOPRAZOLE (EC) 40 MG TAB PO SCH (05:56)
[2018-11-12 08:08] VITALS: BP 155/77; PULSE 75; RESP 16
[2018-11-12] MEDS: DICLOFENAC SODIUM 1% GEL 100 GM TUBE TP SCH ×3 (09:00→21:26)
[2018-11-12] MEDS: TRIAMCINOLONE ACET 0.5% 15 GM CR TOP SCH ×2 (09:00→21:27)
[2018-11-12] MEDS: FERROUS SULFATE (EC) 325 MG TAB PO SCH (09:33)
[2018-11-12] MEDS: GABAPENTIN 300 MG CAP PO SCH ×3 (09:33→21:21)
[2018-11-12] MEDS: LACTOBACILLUS RHAMNOSUS CAP PO SCH ×2 (09:33→21:21)
[2018-11-12] MEDS: LISINOPRIL 20 MG TAB PO SCH (09:34)
[2018-11-12] MEDS: RIFAXIMIN 200 MG TAB PO SCH ×3 (09:34→21:21)
[2018-11-12] MEDS: ENOXAPARIN 40 MG/0.4 ML SYG SC SCH (09:38)
[2018-11-12 14:34] VITALS: BP 139/79; PULSE 85; RESP 18
--- NOTE | 2018-11-12 16:21 | PN ---
Date/Time of Note Date/Time of Note DATE: 11/12/18 TIME: 16:20 Assessment/Plan VTE Prophylaxis Risk score (from Ns)>0 risk: 2 SCD applied (from Nsg): Yes Pharmacological prophylaxis: LMWH Lines/Catheters IV Catheter Type (from Nrs): Saline Lock Urinary Cath still in place: No Assessment/Plan Hospital Course SUBJECTIVE: Tolerating regular diet. Diarrhea improved. OBJECTIVE: Physical Exam General: Adequately build 57 year-old male lying in bed in no apparent distress. HEENT: Normocephalic, atraumatic. Eyes: Anicteric sclerae, conjunctivae clear. ENT: Nasal septum midline, oral mucosa moist. Neck supple, no JVD noticed. Respiratory: Bilaterally diminished breath sounds. No use of accessory muscles of respiration. No adventitious breath sounds. Cardiovascular: S1, S2 heard. Regular rate and rhythm. Abdomen: Nontender, and nondistended. Genitourinary: Deferred. Extremities: No cyanosis, no clubbing. Bilateral lower extremity edema. Neurologic: Cranial nerves II through XII grossly intact. The patient is awake, alert, and oriented. Labs & Vitals per chart ASSESSMENT & PLAN 57-year-old male with comorbidities including HIV who is noncompliant with his HIV medications, hypertension, and substance abuse who came to the emergency room with vague complaints, who was found to have possible underlying ileus in the CT scan and was admitted to inpatient setting for further treatment and evaluation. 1. Possible underlying ileus Vs enteritis. -DC prokinetic therapy since the patient has underlying diarrhea. -Able to tolerate a regular consistency diet. -Stool for C. diff negative. Other studies pending. -ID following. 2. Essential hypertension. -Continue antihypertensives. 3. HIV positive status -Continue antiretroviral medications -CD4 count 437. -ID evaluation. 4. Edema of bilateral upper and lower extremities -Ultrasound negative for any DVT. 5. Substance abuse. -Cessation will be advised. 6. Prostate hypertrophy. -Continue tamsulosin and dutasteride. 7. Homelessness. -Social work consult. 8. Debility. -Physical therapy evaluation ongoing. 9. Fluids, electrolytes, and nutrition. -Regular diet. 10. DVT prophylaxis -Subcutaneous Lovenox. Plan: -Continue regular diet. -Continue physical therapy evaluation. -Plan is to discharge the patient tomorrow in the AM. The patient was seen in collaboration with Dr. Pate. Result Diagram: 11/12/18 0516 11/12/18 0516 Results 24hrs Laboratory Tests Test 11/12/18 05:16 White Blood Count 9.4 # Red Blood Count 4.13 L Hemoglobin 12.8 L Hematocrit 39.8 L Mean Corpuscular Volume 96.4 Mean Corpuscular Hemoglobin 31.0 Mean Corpuscular Hemoglobin Concent 32.2 Red Cell Distribution Width 11.7 Platelet Count 120 L Mean Platelet Volume 12.3 H Immature Granulocytes % 0.400 Neutrophils % 66.9 Lymphocytes % 22.5 Monocytes % 10.0 Eosinophils % 0.0 Basophils % 0.2 Nucleated Red Blood Cells % 0.0 Immature Granulocytes # 0.040 H Neutrophils # 6.3 Lymphocytes # 2.1 Monocytes # 0.9 Eosinophils # 0.0 Basophils # 0.0 Nucleated Red Blood Cells # 0.0 Sodium Level 137 Potassium Level 3.8 Chloride Level 105 Carbon Dioxide Level 25 Anion Gap 7 Blood Urea Nitrogen 11 Creatinine 0.80 Est Glomerular Filtrat Rate mL/min > 60 Glucose Level 103 Calcium Level 8.4 Phosphorus Level 3.3 Magnesium Level 1.6 L Exam/Review of Systems Exam Vitals Vital Signs Date Temp Pulse Resp B/P (MAP) Pulse Ox O2 O2 Flow FiO2 Time Delivery Rate 11/12/18 98.0 85 18 139/79 100 14:34 (99) 11/12/18 Room Air 02:00 Intake and Output 11/11/18 11/11/18 11/12/18 1515:00 23:00 07:00 IntakeIntake Total 750 ml 600 ml 450 ml OutputOutput Total 300 ml 200 ml 1200 ml BalanceBalance 450 ml 400 ml -750 ml Results Results 24hrs Laboratory Tests Test 11/12/18 05:16 White Blood Count 9.4 # Red Blood Count 4.13 L Hemoglobin 12.8 L Hematocrit 39.8 L Mean Corpuscular Volume 96.4 Mean Corpuscular Hemoglobin 31.0 Mean Corpuscular Hemoglobin Concent 32.2 Red Cell Distribution Width 11.7 Platelet Count 120 L Mean Platelet Volume 12.3 H Immature Granulocytes % 0.400 Neutrophils % 66.9 Lymphocytes % 22.5 Monocytes % 10.0 Eosinophils % 0.0 Basophils % 0.2 Nucleated Red Blood Cells % 0.0 Immature Granulocytes # 0.040 H Neutrophils # 6.3 Lymphocytes # 2.1 Monocytes # 0.9 Eosinophils # 0.0 Basophils # 0.0 Nucleated Red Blood Cells # 0.0 Sodium Level 137 Potassium Level 3.8 Chloride Level 105 Carbon Dioxide Level 25 Anion Gap 7 Blood Urea Nitrogen 11 Creatinine 0.80 Est Glomerular Filtrat Rate mL/min > 60 Glucose Level 103 Calcium Level 8.4 Phosphorus Level 3.3 Magnesium Level 1.6 L Medications Medication Current Medications Diclofenac Sodium (Voltaren 1% Gel) 2 gm TID TP Last administered on 11/11/18 20:53; Admin Dose 2 GM; Start 11/08/18 at 09:00 Triamcinolone Acetonide (Kenalog 0.5% Cr) 1 applic BID TOP Last administered on 11/11/18 20:53; Admin Dose 1 APPLIC; Start 11/08/18 at 09:00 IV Flush (NS 3 ml) 3 ml PER PROTOCOL IV ; Start 11/08/18 at 07:00 Ondansetron HCl (Zofran Inj) 4 mg Q6H PRN IV NAUSEA/VOMITING Last administered on 11/08/18 12:03; Admin Dose 4 MG; Start 11/08/18 at 07:00 Enoxaparin Sodium (Lovenox) 40 mg DAILY SC Last administered on 11/12/18 09:38; Admin Dose 40 MG; Start 11/08/18 at 09:00 Ferrous Sulfate (Ferrous Sulfate (Ec)) 325 mg DAILY PO Last administered on 11/12/18 09:33; Admin Dose 325 MG; Start 11/09/18 at 09:00 Gabapentin (Neurontin) 600 mg TID PO Last administered on 11/12/18 13:02; Ad min Dose 600 MG; Start 11/08/18 at 21:00 Lisinopril (Zestril) 40 mg DAILY PO Last administered on 11/12/18 09:34; Admin Dose 40 MG; Start 11/09/18 at 09:00 Hydralazine HCl (Apresoline) 10 mg Q6H PRN IV SBP>160; Start 11/08/18 at 15:30 Dutasteride (Avodart) 0.5 mg QPM PO Last administered on 11/11/18 20:48; Admin Dose 0.5 MG; Start 11/08/18 at 21:00 Tamsulosin HCl (Flomax) 0.4 mg DAILY@21 PO Last administered on 11/11/18at 20:48; Admin Dose 0.4 MG; Start 11/08/18 at 21:00 Morphine Sulfate (morphine) 6 mg Q4H PRN PO SEVERE PAIN LEVEL 7-10; Start 11/08/18 at 22:30 Lactobacillus Acidophilus/ Rhamnosus (Culturelle) 1 cap BID PO Last administered on 11/12/18at 09:33; Admin Dose 1 CAP; Start 11/11/18 at 14:30 Rifaximin (Xifaxan) 200 mg TID PO Last administered on 11/12/18at 13:02; Admin Dose 200 MG; Start 11/11/18 at 15:00 Pantoprazole (Protonix Tab) 40 mg DAILY@06 PO Last administered on 11/12/18at 05:56; Admin Dose 40 MG; Start 11/12/18 at 06:00 ELLIOT SEBASTIAN NP Nov 12, 2018 16:21
[2018-11-12] MEDS ORDERED: MAGNESIUM SULFATE 2 GM/50 ML 50 ML IVPB ONE (17:30)
[2018-11-12 20:41] VITALS: BP 140/83; PULSE 83; RESP 18
[2018-11-12] MEDS: TAMSULOSIN (SR) 0.4 MG CAP PO SCH (21:21)
[2018-11-12] MEDS: DUTASTERIDE 0.5 MG CAP PO SCH (21:21)
--- NOTE | 2018-11-12 22:48 | CONS ---
Assessment/Plan Assessment/Plan Hospital Course (Demo Recall) ID NOTE CURRENT ABX: => Rifaximin + Lactobacillus and probiotics for persistent diarrhea s/p Vanco IV/Zosyn/Levaquin 24H INTERVAL SUMMARY * Resting with eyes closed, no fevers, WBC normal - chart reviewed - still w /frequent BMs on record * He may have HIV associated diarrhea -- he has been off ARV meds, recently went back to [facility] ([facility] were he follows for his HIV and was given new RX for AVR "BIKTARVY" -- he has not had a chance to fill this med at the [facility]. He has no ARV meds with him. He should not be started on alternative ARV during this admission. * He has BLEXT edema w/bilateral inguinal lymphadenopathy -- no evidence cellulitis BLEXT. Etiology may be related to HIV viremia since his HIV VL is elevated to 71,4000; alternative Dx such as lymphoma to be considered. DIAGNOSTICS * 11/08/18 CT ABD-PEL: * 1. Prominent nondilated fluid filled loops of small bowel in a fairly diffuse fashion consistent with ileus. Enteritis cannot be excluded. * 2. No calcified urinary calculi obstructive uropathy. * 3. Moderate circumferential urinary wall thickening may be due to chronic obstruction. Cystitis cannot be excluded. Unchanged mild enlarged prostate gland. Correlation with PSA levels may be helpful. * 4. Small focal consolidation lingula left upper lobe may all be due to atelectasis. Acute infiltrate cannot be excluded. * 5. Mild to moderate bilateral inguinal lymphadenopathy. Recommend clinical correlation and follow-up. * 11/08/18 BLEXT US (-)DVT * 11/08/18 CXR: No acute intrathoracic abnormality identified. MICRO * 11/10/18 (-)C.DIFF * 11/08/18 Urine Cx(-) * 11/07/18 BCx(-) PHYSICAL EXAMINATION: GENERAL: VSS, NAD HEENT: AT, NC, anicteric, no thrush NECK: SUPPLE CHEST: Equal chest rise without dyspnea HEART: Rdial pulse RRR ABDOMEN: Soft, NT : Normal Male -- bilateral groin adenopathy - non-tender EXT: Warm w/BLEXT mild edema SKIN: no RASH no diaphoresis ID ASSESSMENT: 57 yo M admit with: 1. HIV(+) -- since ~2001 w/CD4# 437 -> HIV VL 71,400 = NONCOMPLIANCE w/daily ARV meds. 2. Ileus with intractable abdominal pain. * Possible enteritis w/diarrhea 3. Essential HTN 4. Edema of bilateral upper and lower extremities * -Ultrasound negative for any DVT. 5. Mild to Moderate bilateral inguinal lymphadenopathy -- DDX HIV LYMPHADENOPATHY vs alternative Dx ?Lymphoma * He has BLEXT edema w/bilateral inguinal lymphadenopathy -- no evidence cellulitis BLEXT. Etiology may be related to HIV viremia since his HIV VL is elevated to 71,4000; alternative Dx such as lymphoma to be considered. 6. Prostatomegaly: Tamsulosin and dutasteride onboard * PSA 0.1 (WNL) 7. Chronic lumbago w/intermittent sciatica * MRI L-SPINE SEP 2016: signal abnormality involving L5-S1 vertebral bodies which were nonspecific. There is also severe narrowing of the bilateral L4-L5 and L5-S1 foramina. 8. Substance abuse: Amphetamines (Cocaine/METH) 9. History of hepatitis C. 10. Substance abuse with cocaine and amphetamines. Patient advised to stop using. 11. Homelessness.-Social work consult. 12. Chronic debility 13. Hx of Left Knee surgery 14. Chronic dry skin INVASIVES: PIV ABX ALLERGY: KNDA CURRENT ABX: => =>OFF ABX --s/p ABX x 3 days s/p Vanco IV/Zosyn/Levaquin ID RECOMMENDATIONS/PLAN: 1. Started Rifaximin + Lactobacillus and probiotics for persistent diarrhea 2. Consider GI referral for COLONOSCOPY r/o alternative etiology to diarrhea w/colon bx IBS?-- he had similar episode in past 3. BLEXT lymphadenopathy w/BLEXT edema * Etiology may be related to HIV viremia since his HIV VL is elevated to 71,4000; alternative Dx such as lymphoma are in the differential diagnosis * Consider surgical consult for surgical node removal and biopsy vs referral to outpatient follow up for biopsy. 4. OFF ARV MEDS for HIV w/adequate CD4# 437 == NO ALTERNATIVE ARV MEDS TO BE STARTED DURING INPATIENT STAY * He recently went back to [facility] ([facility] were he follows for his HIV and was given new RX for AVR "BIKTARVY" -- he has not had a chance to fill this med at the [facility]. He has no ARV meds with him. He should not be started on alternative ARV during this admission. He has no one to assist him with filling his Rx for BIKTARY at [facility] -- he should fill on DC from inpatient stay. . Consultation Date/Type/Reason Admit Date/Time Nov 10, 2018 at 10:11 Initial Consult Date Date/Time of Note DATE: 11/12/18 TIME: 22:45 Exam/Review of Systems Exam Vitals Vital Signs Date Temp Pulse Resp B/P (MAP) Pulse Ox O2 O2 Flow FiO2 Time Delivery Rate 11/12/18 98.4 83 18 140/83 99 20:41 (102) 11/12/18 Room Air 02:00 Intake and Output 11/11/18 11/11/18 11/12/18 1414:59 22:59 06:59 IntakeIntake Total 750 ml 600 ml 450 ml OutputOutput Total 300 ml 200 ml 1200 ml BalanceBalance 450 ml 400 ml -750 ml Results Result Diagram: 11/12/18 0516 11/12/18 0516 Results 24hrs Laboratory Tests Test 11/12/18 05:16 White Blood Count 9.4 # Red Blood Count 4.13 L Hemoglobin 12.8 L Hematocrit 39.8 L Mean Corpuscular Volume 96.4 Mean Corpuscular Hemoglobin 31.0 Mean Corpuscular Hemoglobin Concent 32.2 Red Cell Distribution Width 11.7 Platelet Count 120 L Mean Platelet Volume 12.3 H Immature Granulocytes % 0.400 Neutrophils % 66.9 Lymphocytes % 22.5 Monocytes % 10.0 Eosinophils % 0.0 Basophils % 0.2 Nucleated Red Blood Cells % 0.0 Immature Granulocytes # 0.040 H Neutrophils # 6.3 Lymphocytes # 2.1 Monocytes # 0.9 Eosinophils # 0.0 Basophils # 0.0 Nucleated Red Blood Cells # 0.0 Sodium Level 137 Potassium Level 3.8 Chloride Level 105 Carbon Dioxide Level 25 Anion Gap 7 Blood Urea Nitrogen 11 Creatinine 0.80 Est Glomerular Filtrat Rate mL/min > 60 Glucose Level 103 Calcium Level 8.4 Phosphorus Level 3.3 Magnesium Level 1.6 L Medications Medication Current Medications Diclofenac Sodium (Voltaren 1% Gel) 2 gm TID TP Last administered on 11/12/18at 21:26; Admin Dose 2 GM; Start 11/08/18 at 09:00 Triamcinolone Acetonide (Kenalog 0.5% Cr) 1 applic BID TOP Last administered on 11/12/18 21:27; Admin Dose 1 APPLIC; Start 11/08/18 at 09:00 IV Flush (NS 3 ml) 3 ml PER PROTOCOL IV ; Start 11/08/18 at 07:00 Ondansetron HCl (Zofran Inj) 4 mg Q6H PRN IV NAUSEA/VOMITING Last administered on 11/08/18 12:03; Admin Dose 4 MG; Start 11/08/18 at 07:00 Enoxaparin Sodium (Lovenox) 40 mg DAILY SC Last administered on 11/12/18 09:38; Admin Dose 40 MG; Start 11/08/18 at 09:00 Ferrous Sulfate (Ferrous Sulfate (Ec)) 325 mg DAILY PO Last administered on 11/12/18 09:33; Admin Dose 325 MG; Start 11/09/18 at 09:00 Gabapentin (Neurontin) 600 mg TID PO Last administered on 11/12/18 21:21; Admin Dose 600 MG; Start 11/08/18 at 21:00 Lisinopril (Zestril) 40 mg DAILY PO Last administered on 11/12/18 09:34; Admin Dose 40 MG; Start 11/09/18 at 09:00 Hydralazine HCl (Apresoline) 10 mg Q6H PRN IV SBP>160; Start 11/08/18 at 15:30 Dutasteride (Avodart) 0.5 mg QPM PO Last administered on 11/12/18 21:21; Admin Dose 0.5 MG; Start 11/08/18 at 21:00 Tamsulosin HCl (Flomax) 0.4 mg DAILY@21 PO Last administered on 11/12/18 21:21; Admin Dose 0.4 MG; Start 11/08/18 at 21:00 Morphine Sulfate (morphine) 6 mg Q4H PRN PO SEVERE PAIN LEVEL 7-10; Start 11/08/18 at 22:30 Lactobacillus Acidophilus/ Rhamnosus (Culturelle) 1 cap BID PO Last administered on 11/12/18 21:21; Admin Dose 1 CAP; Start 11/11/18 at 14:30 Rifaximin (Xifaxan) 200 mg TID PO Last administered on 11/12/18 21:21; Admin Dose 200 MG; Start 11/11/18 at 15:00 Pantoprazole (Protonix Tab) 40 mg DAILY@06 PO Last administered on 11/12/18at 05:56; Admin Dose 40 MG; Start 11/12/18 at 06:00 DEDRA JORDAN NP Nov 12, 2018 22:47
[2018-11-13 02:21] VITALS: BP 148/81; PULSE 84; RESP 20
[2018-11-13] MEDS: PANTOPRAZOLE (EC) 40 MG TAB PO SCH (06:03)
[2018-11-13 08:05] VITALS: BP 152/84; PULSE 88; RESP 16
--- NOTE | 2018-11-13 08:17 | PDOCDIS ---
Discharge Instructions CONDITION [id number] Patient Condition: [id number] Stable HOME CARE INSTRUCTIONS: [id number] Diet Instructions: [id number] Regular FOLLOW UP/APPOINTMENTS Follow-up Plan Baudilio Moe MD Specialty: Internal Medicine Office Address: [address] [place], [place] [id number] Office OTHER ORDERS: Other Orders: 1. Resume home medications. 2. Take a regular diet. 3. Abstain from using recreational medications. 4. Resume activities as tolerated. 5. Please follow-up with your HIV clinic. 6. Please follow-up with your primary care physician 2weeks. If you do not have a primary care physician, please call Dr. Moe's office or go to the nearest [facility] clinic. ELLIOT SEBASTIAN NP Nov 13, 2018 08:17
[2018-11-13] MEDS: RIFAXIMIN 200 MG TAB PO SCH ×3 (08:54→20:26)
[2018-11-13] MEDS: GABAPENTIN 300 MG CAP PO SCH ×3 (08:55→20:26)
[2018-11-13] MEDS: FERROUS SULFATE (EC) 325 MG TAB PO SCH (08:56)
[2018-11-13] MEDS: LISINOPRIL 20 MG TAB PO SCH (08:56)
[2018-11-13] MEDS: ENOXAPARIN 40 MG/0.4 ML SYG SC SCH (08:57)
[2018-11-13] MEDS: TRIAMCINOLONE ACET 0.5% 15 GM CR TOP SCH ×2 (08:59→20:27)
[2018-11-13] MEDS: DICLOFENAC SODIUM 1% GEL 100 GM TUBE TP SCH ×4 (08:59→20:59)
[2018-11-13] MEDS: LACTOBACILLUS RHAMNOSUS CAP PO SCH ×2 (09:01→20:26)
--- NOTE | 2018-11-13 09:08 | PN ---
Date/Time of Note Date/Time of Note DATE: 11/13/18 TIME: 09:07 Assessment/Plan VTE Prophylaxis Risk score (from Ns)>0 risk: 2 SCD applied (from Ns): Yes Pharmacological prophylaxis: LMWH Lines/Catheters IV Catheter Type (from [facility] Saline Lock Urinary Cath still in place: No Assessment/Plan Hospital Course SUBJECTIVE: Tolerating regular diet. Had another bout of significant diarrhea today. OBJECTIVE: Physical Exam General: Adequately build 57 year-old male lying in bed in no apparent distress. HEENT: Normocephalic, atraumatic. Eyes: Anicteric sclerae, conjunctivae clear. ENT: Nasal septum midline, oral mucosa moist. Neck supple, no JVD noticed. Respiratory: Bilaterally diminished breath sounds. No use of accessory muscles of respiration. No adventitious breath sounds. Cardiovascular: S1, S2 heard. Regular rate and rhythm. Abdomen: Nontender, and nondistended. Genitourinary: Deferred. Extremities: No cyanosis, no clubbing. Bilateral lower extremity edema. Neurologic: Cranial nerves II through XII grossly intact. The patient is awake, alert, and oriented. Labs & Vitals per chart ASSESSMENT & PLAN 57-year-old male with comorbidities including HIV who is noncompliant with his HIV medications, hypertension, and substance abuse who came to the emergency room with vague complaints, who was found to have possible underlying ileus in the CT scan and was admitted to inpatient setting for further treatment and evaluation. 1. Possible underlying ileus Vs enteritis. -DC prokinetic therapy since the patient has underlying diarrhea. -Able to tolerate a regular consistency diet. -Stool for C. diff negative. Other studies pending. -ID following. -Gastroenterology will be consulted. 2. Essential hypertension. -Continue antihypertensives. 3. HIV positive status -Continue antiretroviral medications -CD4 count 437. -ID evaluation. 4. Edema of bilateral upper and lower extremities -Ultrasound negative for any DVT. 5. Substance abuse. -Cessation will be advised. 6. Prostate hypertrophy. -Continue tamsulosin and dutasteride. 7. Homelessness. -Social work consult. 8. Debility. -Physical therapy evaluation ongoing. 9. Fluids, electrolytes, and nutrition. -Regular diet. 10. DVT prophylaxis -Subcutaneous Lovenox. Plan: -Continue regular diet. -Continue physical therapy evaluation. -Obtain gastroenterology evaluation for possible colonoscopy because the patient continues to have significant diarrhea despite current medical management. The patient was seen in collaboration with Dr. Pate. Result Diagram: 11/12/1851511/12/18515 Exam/Review of Systems Exam Vitals Vital Signs Date Temp Pulse Resp B/P (MAP) Pulse Ox O2 O2 Flow FiO2 Time Delivery Rate 11/13/18 100.3 88 16 152/84 100 08:05 (106) 11/12/18 Room Air 02:00 Intake and Output 11/12/18 11/12/18 11/13/18 1515:00 23:00 07:00 IntakeIntake Total 50 ml 500 ml OutputOutput Total 300 ml 375 ml 600 ml BalanceBalance -300 ml -325 ml -100 ml Medications Medication Current Medications Diclofenac Sodium (Voltaren 1% Gel) 2 gm TID TP Last administered on 11/13/18 08:59; Admin Dose 2 GM; Start 11/08/18 at 09:00 Triamcinolone Acetonide (Kenalog 0.5% Cr) 1 applic BID TOP Last administered on 11/13/18 08:59; Admin Dose 1 APPLIC; Start 11/08/18 at 09:00 IV Flush (NS 3 ml) 3 ml PER PROTOCOL IV ; Start 11/08/18 at 07:00 Ondansetron HCl (Zofran Inj) 4 mg Q6H PRN IV NAUSEA/VOMITING Last administered on 11/08/18 12:03; Admin Dose 4 MG; Start 11/08/18 at 07:00 Enoxaparin Sodium (Lovenox) 40 mg DAILY SC Last administered on 11/13/18 08:57; Admin Dose 40 MG; Start 11/08/18 at 09:00 Ferrous Sulfate (Ferrous Sulfate (Ec)) 325 mg DAILY PO Last administered on 11/13/18 08:56; Admin Dose 325 MG; Start 11/09/18 at 09:00 Gabapentin (Neurontin) 600 mg TID PO Last administered on 11/13/18 08:55; Admin Dose 600 MG; Start 11/08/18 at 21:00 Lisinopril (Zestril) 40 mg DAILY PO Last administered on 11/13/18 08:56; Admin Dose 40 MG; Start 11/09/18 at 09:00 Hydralazine HCl (Apresoline) 10 mg Q6H PRN IV SBP>160; Start 11/08/18 at 15:30 Dutasteride (Avodart) 0.5 mg QPM PO Last administered on 11/12/18at 21:21; Admin Dose 0.5 MG; Start 11/08/18 at 21:00 Tamsulosin HCl (Flomax) 0.4 mg DAILY@21 PO Last administered on 11/12/18 21:21; Admin Dose 0.4 MG; Start 11/08/18 at 21:00 Morphine Sulfate (morphine) 6 mg Q4H PRN PO SEVERE PAIN LEVEL 7-10; Start 11/08/18 at 22:30 Lactobacillus Acidophilus/ Rhamnosus (Culturelle) 1 cap BID PO Last administered on 11/13/18 09:01; Admin Dose 1 CAP; Start 11/11/18 at 14:30 Rifaximin (Xifaxan) 200 mg TID PO Last administered on 11/13/18 08:54; Admin Dose 200 MG; Start 11/11/18 at 15:00 Pantoprazole (Protonix Tab) 40 mg DAILY@06 PO Last administered on 11/13/18 06:03; Admin Dose 40 MG; Start 11/12/18 at 06:00 ELLIOT SEBASTIAN NP Nov 13, 2018 09:08
[2018-11-13 14:35] VITALS: BP 128/71; PULSE 79; RESP 18
--- NOTE | 2018-11-13 14:39 | CONS ---
Assessment/Plan Assessment/Plan Hospital Course (Demo Recall) ID NOTE CURRENT ABX: => Rifaximin + Lactobacillus and probiotics for persistent diarrhea s/p Vanco IV/Zosyn/Levaquin 24H INTERVAL SUMMARY * His stools were more pasty than liquid yesterday evening -- today he had more liquid diarrhea, TMax 100. 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 He has no ARV meds with him. He should not be started on alternative ARV during this admission. * HIV LYMPHADENOPATHY BILATERAL INQUINAL NODES --> - no evidence cellulitis BLEXT. Etiology LIKELY related to HIV viremia since his HIV VL is elevated to 71,4000; alternative Dx such as lymphoma to be considered. DIAGNOSTICS * 11/08/18 CT ABD-PEL: * 1. Prominent nondilated fluid filled loops of small bowel in a fairly diffuse fashion consistent with ileus. Enteritis cannot be excluded. * 2. No calcified urinary calculi obstructive uropathy. * 3. Moderate circumferential urinary wall thickening may be due to chronic obstruction. Cystitis cannot be excluded. Unchanged mild enlarged prostate gland. Correlation with PSA levels may be helpful. * 4. Small focal consolidation lingula left upper lobe may all be due to atelectasis. Acute infiltrate cannot be excluded. * 5. Mild to moderate bilateral inguinal lymphadenopathy. Recommend clinical correlation and follow-up. * 11/08/18 BLEXT US (-)DVT * 11/08/18 CXR: No acute intrathoracic abnormality identified. MICRO * 11/10/18 (-)C.DIFF * 11/08/18 Urine Cx(-) * 11/07/18 BCx(-) PHYSICAL EXAMINATION: GENERAL: VSS, NAD HEENT: AT, NC, anicteric, no thrush NECK: SUPPLE CHEST: Equal chest rise without dyspnea HEART: Rdial pulse RRR ABDOMEN: Soft, NT : Normal Male -- bilateral groin adenopathy - non-tender EXT: Warm w/BLEXT mild edema SKIN: no RASH no diaphoresis ID ASSESSMENT: 57 yo M admit with: 1. HIV(+) -- since ~2001 w/CD4# 437 -> HIV VL 71,400 = NONCOMPLIANCE w/daily ARV meds. 2. Ileus with intractable abdominal pain. * Possible enteritis w/diarrhea 3. Essential HTN 4. Edema of bilateral upper and lower extremities * -Ultrasound negative for any DVT. 5. Mild to Moderate bilateral inguinal lymphadenopathy -- DDX HIV LYMPHADENOPATHY vs alternative Dx ?Lymphoma * He has BLEXT edema w/bilateral inguinal lymphadenopathy -- no evidence cellulitis BLEXT. Etiology may be related to HIV viremia since his HIV VL is elevated to 71,4000; alternative Dx such as lymphoma to be considered. 6. Prostatomegaly: Tamsulosin and dutasteride onboard * PSA 0.1 (WNL) 7. Chronic lumbago w/intermittent sciatica * MRI L-SPINE SEP 2016: signal abnormality involving L5-S1 vertebral bodies which were nonspecific. There is also severe narrowing of the bilateral L4-L5 and L5-S1 foramina. 8. Substance abuse: Amphetamines (Cocaine/METH) 9. History of hepatitis C. 10. Substance abuse with cocaine and amphetamines. Patient advised to stop using. 11. Homelessness.-Social work consult. 12. Chronic debility 13. Hx of Left Knee surgery 14. Chronic dry skin INVASIVES: PIV ABX ALLERGY: KNDA CURRENT ABX: => =>OFF ABX --s/p ABX x 3 days s/p Vanco IV/Zosyn/Levaquin ID RECOMMENDATIONS/PLAN: 1. Started Rifaximin + Lactobacillus and probiotics for persistent diarrhea * ADD Bismuth and QUESTRAN today 2. Consider GI referral for COLONOSCOPY r/o alternative etiology to diarrhea w/colon bx IBS?-- he had similar episode in past * This can be done as outpatient 3. BLEXT lymphadenopathy w/BLEXT edema * Etiology may be related to HIV viremia since his HIV VL is elevated to 71,4000; alternative Dx such as lymphoma are in the differential diagnosis * Consider surgical consult for surgical node removal and biopsy vs referral to outpatient follow up for biopsy. 4. OFF ARV MEDS for HIV w/adequate CD4# 437 == NO ALTERNATIVE ARV MEDS TO BE STARTED DURING INPATIENT STAY * He recently went back to [facility] ([facility] were he follows for his HIV and was given new RX for AVR "BIKTARVY" -- he has not had a chance to fill this med at the [facility]. He has no ARV meds with him. He should not be started on alternative ARV during this admission. He has no one to assist him with filling his Rx for BIKTARY at [facility] -- he should fill on DC from inpatient stay. 5. When cleared for DC home -- may DC on PEPTO BISMOL 2 CHEW PO QID + Probiotics to OP HIV CLINIC F/U * I have provided him with copy of my note, and with CT showing bilateral inguinal lymphadenopathy -- if HIV viremia does not improve on BIKTARVY and lymphadeophathy persists -- he should be referred for lymph node BIOPSY to r/o Lymphoma. I went over all the above with the patient who expresses understanding, agreement, gratitude. . Consultation Date/Type/Reason Admit Date/Time Nov 10, 2018 at 10:11 Initial Consult Date Date/Time of Note DATE: 11/13/18 TIME: 14:32 Exam/Review of Systems Exam Vitals Vital Signs Date Temp Pulse Resp B/P (MAP) Pulse Ox O2 O2 Flow FiO2 Time Delivery Rate 11/13/18 98.3 10:41 11/13/18 88 16 152/84 100 08:05 (106) 11/12/18 Room Air 02:00 Intake and Output 11/12/18 11/12/18 11/13/18 1515:00 23:00 07:00 IntakeIntake Total 50 ml 500 ml OutputOutput Total 300 ml 375 ml 600 ml BalanceBalance -300 ml -325 ml -100 ml Results Result Diagram: 11/12/1816 11/12/18 0516 Medications Medication Current Medications Diclofenac Sodium (Voltaren 1% Gel) 2 gm TID TP Last administered on 11/13/18at 12:25; Admin Dose 2 GM; Start 11/08/18 at 09:00 Triamcinolone Acetonide (Kenalog 0.5% Cr) 1 applic BID TOP Last administered on 11/13/18at 08:59; Admin Dose 1 APPLIC; Start 11/08/18 at 09:00 IV Flush (NS 3 ml) 3 ml PER PROTOCOL IV ; Start 11/08/18 at 07:00 Ondansetron HCl (Zofran Inj) 4 mg Q6H PRN IV NAUSEA/VOMITING Last administered on 11/08/18at 12:03; Admin Dose 4 MG; Start 11/08/18 at 07:00 Enoxaparin Sodium (Lovenox) 40 mg DAILY SC Last administered on 11/13/18 0 8:57; Admin Dose 40 MG; Start 11/08/18 at 09:00 Ferrous Sulfate (Ferrous Sulfate (Ec)) 325 mg DAILY PO Last administered on 11/13/18 08:56; Admin Dose 325 MG; Start 11/09/18 at 09:00 Gabapentin (Neurontin) 600 mg TID PO Last administered on 11/13/18 12:24; Admin Dose 600 MG; Start 11/08/18 at 21:00 Lisinopril (Zestril) 40 mg DAILY PO Last administered on 11/13/18 08:56; Admin Dose 40 MG; Start 11/09/18 at 09:00 Hydralazine HCl (Apresoline) 10 mg Q6H PRN IV SBP>160; Start 11/08/18 at 15:30 Dutasteride (Avodart) 0.5 mg QPM PO Last administered on 11/12/18 21:21; Admin Dose 0.5 MG; Start 11/08/18 at 21:00 Tamsulosin HCl (Flomax) 0.4 mg DAILY@21 PO Last administered on 11/12/18 21:21; Admin Dose 0.4 MG; Start 11/08/18 at 21:00 Morphine Sulfate (morphine) 6 mg Q4H PRN PO SEVERE PAIN LEVEL 7-10; Start 11/08/18 at 22:30 Lactobacillus Acidophilus/ Rhamnosus (Culturelle) 1 cap BID PO Last administered on 11/13/18 09:01; Admin Dose 1 CAP; Start 11/11/18 at 14:30 Rifaximin (Xifaxan) 200 mg TID PO Last administered on 11/13/18 12:24; Admin Dose 200 MG; Start 11/11/18 at 15:00 Pantoprazole (Protonix Tab) 40 mg DAILY@06 PO Last administered on 11/13/18 06:03; Admin Dose 40 MG; Start 11/12/18 at 06:00 DEDRA JORDAN NP Nov 13, 2018 14:39
[2018-11-13] MEDS: BISMUTH SUBSALICYLATE 240 ML BTL PO SCH ×4 (15:36→20:59)
--- NOTE | 2018-11-13 16:08 | CONS ---
Assessment/Plan Assessment/Plan Assessment/Plan (Daily) Assessment: Diarrhea Lower abdominal pain C-diff - negative Transaminitis - likely due to amphetamines Essential hypertension. HIV positive status Edema of bilateral upper and lower extremities Substance abuse. Prostate hypertrophy. Homelessness. Plan: Colonoscopy tomorrow Start bowel prep Clear liquid diet Hepatitis serology Autoimmune panel installer Labs Patient seen in collaboration with Judy Moctezuma Consultation Date/Type/Reason Admit Date/Time Nov 10, 2018 at 10:11 Date of Consultation: Nov 13, 2018 Type of Consult GI Reason for Consultation Diarrhea/abdominal pain Date/Time of Note DATE: 11/13/18 TIME: 15:44 Hx of Present Illness This is a 57-year-old male with history of HIV, hypertension, and substance abuse who was admitted for abdominal pain, nausea, vomiting and diarrhea. CT scan shows ileus, C-diff is negative. Stool studies are pending. Patient stats his sx's started 2 years ago Pt denies any history of EGD or Colonoscopy. Patien t is c/o lower abd pain. Denies hematochezia, hematemesis, weight loss, fever or constipation . PMH includes BPH, substance abuse, HIV, and homelessness. The plan is to schedule the patient for Colonoscopy to R/o IBD. Risks and benefits of the procedure have been discussed with the patient . Patient is agreeable to the procedure. Gastrointestinal: no complaints (See HPI) Past Medical History Essential hypertension. HIV positive status Substance abuse. Prostate hypertrophy. Homelessness. Home Meds Reported Medications Dutasteride/Tamsulosin HCl (Dutasteride-Tamsulosin 0.5-0.4) 1 Each Cpmp.24hr, 1 EACH PO DAILY, CAP 11/08/18 Gabapentin* (Gabapentin*) 300 Mg Capsule, 600 MG PO TID, #180 CAP 11/08/18 Lisinopril* (Lisinopril*) 40 Mg Tablet, 40 MG PO DAILY, #30 TAB 11/08/18 Diclofenac Sodium* (Voltaren* Gel) 1% -100 Gm Gel, 2 GM TOP TID, #1 TUB 11/08/18 Triamcinolone Acetonide* (Kenalog*) 0.5%-15GM Cr, 1 APPLIC TOP BID, #1 BOTTLE 11/08/18 Ferrous Sulfate* (Ferrous Sulfate*) 325 Mg Tabec, 325 MG PO DAILY, TAB 11/08/18 Discontinued Scripts Ciprofloxacin Hcl* (Ciprofloxacin Hcl*) 500 Mg Tablet, 500 MG PO BID for 7 Days, TAB Prov:GEE CEDILLO 10/10/16 Diazepam* (Diazepam*) 10 Mg Tablet, 10 MG PO Q12, #14 TAB Prov:FRANCISCO GAMBOA PA-C 06/04/16 Naproxen* (Naprosyn*) 500 Mg Tablet, 500 MG PO BID, #20 TAB Prov:FRANCISCO GAMBOA PA-C 06/04/16 Medications Current Medications Diclofenac Sodium (Voltaren 1% Gel) 2 gm TID TP Last administered on 11/13/18 12:25; Admin Dose 2 GM; Start 11/08/18 at 09:00 Triamcinolone Acetonide (Kenalog 0.5% Cr) 1 applic BID TOP Last administered on 11/13/18 08:59; Admin Dose 1 APPLIC; Start 11/08/18 at 09:00 IV Flush (NS 3 ml) 3 ml PER PROTOCOL IV ; Start 11/08/18 at 07:00 Ondansetron HCl (Zofran Inj) 4 mg Q6H PRN IV NAUSEA/VOMITING Last administered on 11/08/18 12:03; Admin Dose 4 MG; Start 11/08/18 at 07:00 Enoxaparin Sodium (Lovenox) 40 mg DAILY SC Last administered on 11/13/18 08:57; Admin Dose 40 MG; Start 11/08/18 at 09:00 Ferrous Sulfate (Ferrous Sulfate (Ec)) 325 mg DAILY PO Last administered on 11/13/18 08:56; Admin Dose 325 MG; Start 11/09/18 at 09:00 Gabapentin (Neurontin) 600 mg TID PO Last administered on 11/13/18 12:24; Admin Dose 600 MG; Start 11/08/18 at 21:00 Lisinopril (Zestril) 40 mg DAILY PO Last administered on 11/13/18 08:56; Admin Dose 40 MG; Start 11/09/18 at 09:00 Hydralazine HCl (Apresoline) 10 mg Q6H PRN IV SBP>160; Start 11/08/18 at 15:30 Dutasteride (Avodart) 0.5 mg QPM PO Last administered on 11/12/18 21:21; Admin Dose 0.5 MG; Start 11/08/18 at 21:00 Tamsulosin HCl (Flomax) 0.4 mg DAILY@21 PO Last administered on 11/12/18 21:21; Admin Dose 0.4 MG; Start 11/08/18 at 21:00 Morphine Sulfate (morphine) 6 mg Q4H PRN PO SEVERE PAIN LEVEL 7-10; Start 11/08/18 at 22:30 Lactobacillus Acidophilus/ Rhamnosus (Culturelle) 1 cap BID PO Last administered on 11/13/18 09:01; Admin Dose 1 CAP; Start 11/11/18 at 14:30 Rifaximin (Xifaxan) 200 mg TID PO Last administered on 11/13/18 12:24; Admin Dose 200 MG; Start 11/11/18 at 15:00 Pantoprazole (Protonix Tab) 40 mg DAILY@06 PO Last administered on 11/13/18 06:03; Admin Dose 40 MG; Start 11/12/18 at 06:00 Bismuth Subsalicylate (Pepto-Bismol) 30 ml QID PO Last administered on 11/13/18 15:36; Admin Dose 30 ML; Start 11/13/18 at 15:00 Allergies: Coded Allergies: No Known Allergy (Unverified , 11/08/18) Past Surgical History Past Surgical Hx: appendectomy, other (Left knee surgery) Social History Alcohol Use: none Smoking Status: Heavy tobacco smoker Drug Use: other (Methamphetamines) Exam/Review of Systems Exam Vitals Vital Signs Date Temp Pulse Resp B/P (MAP) Pulse Ox O2 O2 Flow FiO2 Time Delivery Rate 11/13/18 98.2 79 18 128/71 98 14:35 (90) 11/12/18 Room Air 02:00 Intake and Output 11/12/18 11/12/18 11/13/18 1515:00 23:00 07:00 IntakeIntake Total 50 ml 500 ml OutputOutput Total 300 ml 375 ml 600 ml BalanceBalance -300 ml -325 ml -100 ml Results Result Diagram: 11/12/18 0516 11/12/18 0516 Medications Medication Current Medications Diclofenac Sodium (Voltaren 1% Gel) 2 gm TID TP Last administered on 11/13/18 12:25; Admin Dose 2 GM; Start 11/08/18 at 09:00 Triamcinolone Acetonide (Kenalog 0.5% Cr) 1 applic BID TOP Last administered on 11/13/18 08:59; Admin Dose 1 APPLIC; Start 11/08/18 at 09:00 IV Flush (NS 3 ml) 3 ml PER PROTOCOL IV ; Start 11/08/18 at 07:00 Ondansetron HCl (Zofran Inj) 4 mg Q6H PRN IV NAUSEA/VOMITING Last administered on 11/08/18 12:03; Admin Dose 4 MG; Start 11/08/18 at 07:00 Enoxaparin Sodium (Lovenox) 40 mg DAILY SC Last administered on 11/13/18 08:57; Admin Dose 40 MG; Start 11/08/18 at 09:00 Ferrous Sulfate (Ferrous Sulfate (Ec)) 325 mg DAILY PO Last administered on 11/13/18 08:56; Admin Dose 325 MG; Start 11/09/18 at 09:00 Gabapentin (Neurontin) 600 mg TID PO Last administered on 11/13/18 12:24; Admin Dose 600 MG; Start 11/08/18 at 21:00 Lisinopril (Zestril) 40 mg DAILY PO Last administered on 11/13/18 08:56; Admin Dose 40 MG; Start 11/09/18 at 09:00 Hydralazine HCl (Apresoline) 10 mg Q6H PRN IV SBP>160; Start 11/08/18 at 15:30 Dutasteride (Avodart) 0.5 mg QPM PO Last administered on 11/12/18 21:21; Admin Dose 0.5 MG; Start 11/08/18 at 21:00 Tamsulosin HCl (Flomax) 0.4 mg DAILY@21 PO Last administered on 11/12/18 21:21; Admin Dose 0.4 MG; Start 11/08/18 at 21:00 Morphine Sulfate (morphine) 6 mg Q4H PRN PO SEVERE PAIN LEVEL 7-10; Start 11/08/18 at 22:30 Lactobacillus Acidophilus/ Rhamnosus (Culturelle) 1 cap BID PO Last administered on 11/13/18 09:01; Admin Dose 1 CAP; Start 11/11/18 at 14:30 Rifaximin (Xifaxan) 200 mg TID PO Last administered on 11/13/18at 12:24; Admin Dose 200 MG; Start 11/11/18 at 15:00 Pantoprazole (Protonix Tab) 40 mg DAILY@06 PO Last administered on 11/13/18at 06:03; Admin Dose 40 MG; Start 11/12/18 at 06:00 Bismuth Subsalicylate (Pepto-Bismol) 30 ml QID PO Last administered on 11/13/18at 15:36; Admin Dose 30 ML; Start 11/13/18 at 15:00 CHUCK SAUCEDA FOOT WORKER Nov 13, 2018 16:02
[2018-11-13] MEDS ORDERED: BISACODYL (EC) 5 MG TAB PO ONE (16:30)
[2018-11-13] MEDS ORDERED: MAGNESIUM CITRATE 300 ML BTL PO ONE (17:30)
[2018-11-13] MEDS ORDERED: POLYETHYLENE GLYCOL 3350 119 GM POWDER PO ONE (18:30)
[2018-11-13 20:25] VITALS: BP 146/77; PULSE 81; RESP 18
[2018-11-13] MEDS: DUTASTERIDE 0.5 MG CAP PO SCH (20:26)
[2018-11-13] MEDS: TAMSULOSIN (SR) 0.4 MG CAP PO SCH (20:26)
[2018-11-14] VITALS (10 sets, daily range): BP systolic 117–153; BP diastolic 52–90; PULSE 77–92; RESP 18–24
[2018-11-14] MEDS ORDERED: POLYETHYLENE GLYCOL 3350 119 GM POWDER PO ONE (06:00)
[2018-11-14] MEDS: PANTOPRAZOLE (EC) 40 MG TAB PO SCH (06:56)
[2018-11-14] MEDS ORDERED: PROPOFOL 200 MG INJ ONE (07:00)
[2018-11-14] MEDS ORDERED: BISACODYL (EC) 5 MG TAB PO ONE (08:00)
[2018-11-14] MEDS: GABAPENTIN 300 MG CAP PO SCH ×3 (09:19→20:04)
[2018-11-14] MEDS: RIFAXIMIN 200 MG TAB PO SCH ×3 (09:19→20:04)
[2018-11-14] MEDS: ENOXAPARIN 40 MG/0.4 ML SYG SC SCH (09:19)
[2018-11-14] MEDS: FERROUS SULFATE (EC) 325 MG TAB PO SCH (09:19)
[2018-11-14] MEDS: TRIAMCINOLONE ACET 0.5% 15 GM CR TOP SCH ×2 (09:20→20:09)
[2018-11-14] MEDS: LISINOPRIL 20 MG TAB PO SCH (09:20)
[2018-11-14] MEDS: DICLOFENAC SODIUM 1% GEL 100 GM TUBE TP SCH ×3 (09:20→20:09)
[2018-11-14] MEDS: BISMUTH SUBSALICYLATE 240 ML BTL PO SCH ×4 (09:20→20:04)
[2018-11-14] MEDS: LACTOBACILLUS RHAMNOSUS CAP PO SCH ×2 (09:20→20:04)
--- NOTE | 2018-11-14 15:11 | PN ---
Date/Time of Note Date/Time of Note DATE: 11/14/18 TIME: 15:08 Assessment/Plan VTE Prophylaxis Risk score (from Ns)>0 risk: 2 SCD applied (from [facility]): Yes SCD contraindicated: low risk/ambulating Pharmacological prophylaxis: NA/contraindicated Pharm contraindication: surgical contra Lines/Catheters IV [facility]from [facility] Saline Lock Urinary Cath still in place: No Assessment/Plan Hospital Course Assessment and plan 1. Abd pain, diarrhea ro ibd. colonoscopy and potential biopsy today. avoid milk. 2. Suspected HIV viremia assoc colitis/ abd pain, mod stable restart HIV therapy 3. Nonadherence to medical therapy 4. Chronic HIV status, needs to restart therapy 5. Chronic hepatitis C viremia with abn LFTs consider outpt ultrasound/ serial afp 6. Substance abuse: Meth tobacco cocaine? 7. Failure to thrive homeless? 8. Lymphedema, may consider outpatient surgical lymph node biopsy 9. Hypertension 10. BPH Subjective: Events noted. Patient on bowel prep Objective: Vital signs stable Physical exam No pallor adenopathy Regular no murmur gallop Clear Bowel sounds present mild tender diffuse nondistended no RG No edema Result Diagram: 11/14/18 0532 11/14/18 0532 Results 24hrs Laboratory Tests Test 11/14/18 05:32 White Blood Count 6.2 # Red Blood Count 4.33 L Hemoglobin 13.4 L Hematocrit 40.7 L Mean Corpuscular Volume 94.0 Mean Corpuscular Hemoglobin 30.9 Mean Corpuscular Hemoglobin Concent 32.9 Red Cell Distribution Width 11.8 Platelet Count 149 # Mean Platelet Volume 12.2 H Immature Granulocytes % 0.300 Neutrophils % 49.9 Lymphocytes % 37.6 Monocytes % 11.1 H Eosinophils % 0.8 Basophils % 0.3 Nucleated Red Blood Cells % 0.0 Immature Granulocytes # 0.020 Neutrophils # 3.1 Lymphocytes # 2.3 Monocytes # 0.7 Eosinophils # 0.1 Basophils # 0.0 Nucleated Red Blood Cells # 0.0 Sodium Level 141 Potassium Level 3.8 Chloride Level 108 Carbon Dioxide Level 26 Anion Gap 7 Blood Urea Nitrogen 12 Creatinine 0.77 Est Glomerular Filtrat Rate mL/min > 60 Glucose Level 95 Calcium Level 8.9 Phosphorus Level 3.5 Magnesium Level 1.9 Hepatitis B Surface Antigen NEGATIVE Hepatitis C Antibody REACTIVE H Exam/Review of Systems Exam Vitals Vital Signs Date Temp Pulse Resp B/P (MAP) Pulse Ox O2 O2 Flow FiO2 Time Delivery Rate 11/14/18 98.0 78 18 131/82 97 Room Air 14:26 (98) Intake and Output 11/13/18 11/13/18 11/14/18 1515:00 23:00 07:00 IntakeIntake Total 1200 ml 1550 ml OutputOutput Total 1080 ml 900 ml BalanceBalance 120 ml 650 ml Results Results 24hrs Laboratory Tests Test 11/14/18 05:32 White Blood Count 6.2 # Red Blood Count 4.33 L Hemoglobin 13.4 L Hematocrit 40.7 L Mean Corpuscular Volume 94.0 Mean Corpuscular Hemoglobin 30.9 Mean Corpuscular Hemoglobin Concent 32.9 Red Cell Distribution Width 11.8 Platelet Count 149 # Mean Platelet Volume 12.2 H Immature Granulocytes % 0.300 Neutrophils % 49.9 Lymphocytes % 37.6 Monocytes % 11.1 H Eosinophils % 0.8 Basophils % 0.3 Nucleated Red Blood Cells % 0.0 Immature Granulocytes # 0.020 Neutrophils # 3.1 Lymphocytes # 2.3 Monocytes # 0.7 Eosinophils # 0.1 Basophils # 0.0 Nucleated Red Blood Cells # 0.0 Sodium Level 141 Potassium Level 3.8 Chloride Level 108 Carbon Dioxide Level 26 Anion Gap 7 Blood Urea Nitrogen 12 Creatinine 0.77 Est Glomerular Filtrat Rate mL/min > 60 Glucose Level 95 Calcium Level 8.9 Phosphorus Level 3.5 Magnesium Level 1.9 Hepatitis B Surface Antigen NEGATIVE Hepatitis C Antibody REACTIVE H Medications Medication Current Medications Diclofenac Sodium (Voltaren 1% Gel) 2 gm TID TP Last administered on 11/14/18at 12:36; Admin Dose 2 GM; Start 11/08/18 at 09:00 Triamcinolone Acetonide (Kenalog 0.5% Cr) 1 applic BID TOP Last administered on 11/14/18at 09:20; Admin Dose 1 APPLIC; Start 11/08/18 at 09:00 IV Flush (NS 3 ml) 3 ml PER PROTOCOL IV ; Start 11/08/18 at 07:00 Ondansetron HCl (Zofran Inj) 4 mg Q6H PRN IV NAUSEA/VOMITING Last administered on 11/08/18at 12:03; Admin Dose 4 MG; Start 11/08/18 at 07:00 Enoxaparin Sodium (Lovenox) 40 mg DAILY SC Last administered on 11/14/18 09:19; Admin Dose 40 MG; Start 11/08/18 at 09:00 Ferrous Sulfate (Ferrous Sulfate (Ec)) 325 mg DAILY PO Last administered on 11/14/18 09:19; Admin Dose 325 MG; Start 11/09/18 at 09:00 Gabapentin (Neurontin) 600 mg TID PO Last administered on 11/14/18 09:19; Admin Dose 600 MG; Start 11/08/18 at 21:00 Lisinopril (Zestril) 40 mg DAILY PO Last administered on 11/14/18 09:20; Admin Dose 40 MG; Start 11/09/18 at 09:00 Hydralazine HCl (Apresoline) 10 mg Q6H PRN IV SBP>160; Start 11/08/18 at 15:30 Dutasteride (Avodart) 0.5 mg QPM PO Last administered on 11/13/18 20:26; Admin Dose 0.5 MG; Start 11/08/18 at 21:00 Tamsulosin HCl (Flomax) 0.4 mg DAILY@21 PO Last administered on 11/13/18 20:26; Admin Dose 0.4 MG; Start 11/08/18 at 21:00 Morphine Sulfate (morphine) 6 mg Q4H PRN PO SEVERE PAIN LEVEL 7-10; Start 11/08/18 at 22:30 Lactobacillus Acidophilus/ Rhamnosus (Culturelle) 1 cap BID PO Last administered on 11/14/18 09:20; Admin Dose 1 CAP; Start 11/11/18 at 14:30 Rifaximin (Xifaxan) 200 mg TID PO Last administered on 11/14/18 09:19; Admin Dose 200 MG; Start 11/11/18 at 15:00 Pantoprazole (Protonix Tab) 40 mg DAILY@06 PO Last administered on 11/14/18 06:56; Admin Dose 40 MG; Start 11/12/18 at 06:00 Bismuth Subsalicylate (Pepto-Bismol) 30 ml QID PO Last administered on 11/14/18 09:20; Admin Dose 30 ML; Start 11/13/18 at 15:00 MARVEL SUERO MD Nov 14, 2018 15:11
--- NOTE | 2018-11-14 15:33 | CONS ---
Assessment/Plan Assessment/Plan Hospital Course (Demo Recall) No acute events patient is alert looks comfortable no fevers still having diarrhea WBC today 6.2 no shift no bands BUN 12 creatinine 0.77. Stool for C. difficile negative Physical examination: Well-nourished well-developed middle-aged man in no distress. Head atraumatic normocephalic neck is supple chest rise symmetrical breath sounds diminished bases heart S1-S2 abdomen soft bowel sounds present extremities without cyanosis. Assessment: 1. Persistent diarrhea, patient is scheduled for colonoscopy 2. HIV disease with CD4 count of 437, not on therapy secondary to #3 and #4 3. Medical noncompliance 4. Polysubstance abuse 5. Homelessness Plan: Patient is stable, he is being followed by gastroenterology, pending colonoscopy. Patient to follow with HIV clinic outpatient for management of his HIV disease. Consultation Date/Type/Reason Admit Date/Time Nov 10, 2018 at 10:11 Initial Consult Date 11/13/18 Type of Consult id Date/Time of Note DATE: 11/14/18 TIME: 15:32 Exam/Review of Systems Exam Vitals Vital Signs Date Temp Pulse Resp B/P (MAP) Pulse Ox O2 O2 Flow FiO2 Time Delivery Rate 11/14/18 98.0 78 18 131/82 97 Room Air 14:26 (98) Intake and Output 11/13/18 11/13/18 11/14/18 1515:00 23:00 07:00 IntakeIntake Total 1200 ml 1550 ml OutputOutput Total 1080 ml 900 ml BalanceBalance 120 ml 650 ml Results Result Diagram: 11/14/18 0532 11/14/18 0532 Results 24hrs Laboratory Tests Test 11/14/18 05:32 White Blood Count 6.2 # Red Blood Count 4.33 L Hemoglobin 13.4 L Hematocrit 40.7 L Mean Corpuscular Volume 94.0 Mean Corpuscular Hemoglobin 30.9 Mean Corpuscular Hemoglobin Concent 32.9 Red Cell Distribution Width 11.8 Platelet Count 149 # Mean Platelet Volume 12.2 H Immature Granulocytes % 0.300 Neutrophils % 49.9 Lymphocytes % 37.6 Monocytes % 11.1 H Eosinophils % 0.8 Basophils % 0.3 Nucleated Red Blood Cells % 0.0 Immature Granulocytes # 0.020 Neutrophils # 3.1 Lymphocytes # 2.3 Monocytes # 0.7 Eosinophils # 0.1 Basophils # 0.0 Nucleated Red Blood Cells # 0.0 Sodium Level 141 Potassium Level 3.8 Chloride Level 108 Carbon Dioxide Level 26 Anion Gap 7 Blood Urea Nitrogen 12 Creatinine 0.77 Est Glomerular Filtrat Rate mL/min > 60 Glucose Level 95 Calcium Level 8.9 Phosphorus Level 3.5 Magnesium Level 1.9 Hepatitis B Surface Antigen NEGATIVE Hepatitis C Antibody REACTIVE H Medications Medication Current Medications Diclofenac Sodium (Voltaren 1% Gel) 2 gm TID TP Last administered on 11/14/18 12:36; Admin Dose 2 GM; Start 11/08/18 at 09:00 Triamcinolone Acetonide (Kenalog 0.5% Cr) 1 applic BID TOP Last administered on 11/14/18 09:20; Admin Dose 1 APPLIC; Start 11/08/18 at 09:00 IV Flush (NS 3 ml) 3 ml PER PROTOCOL IV ; Start 11/08/18 at 07:00 Ondansetron HCl (Zofran Inj) 4 mg Q6H PRN IV NAUSEA/VOMITING Last administered on 11/08/18 12:03; Admin Dose 4 MG; Start 11/08/18 at 07:00 Enoxaparin Sodium (Lovenox) 40 mg DAILY SC Last administered on 11/14/18 09:19; Admin Dose 40 MG; Start 11/08/18 at 09:00 Ferrous Sulfate (Ferrous Sulfate (Ec)) 325 mg DAILY PO Last administered on 09:19; Admin Dose 325 MG; Start 11/09/18 at 09:00 Gabapentin (Neurontin) 600 mg TID PO Last administered on 11/14/18 09:19; Admin Dose 600 MG; Start 11/08/18 at 21:00 Lisinopril (Zestril) 40 mg DAILY PO Last administered on 11/14/18 09:20; Admin Dose 40 MG; Start 11/09/18 at 09:00 Hydralazine HCl (Apresoline) 10 mg Q6H PRN IV SBP>160; Start 11/08/18 at 15:30 Dutasteride (Avodart) 0.5 mg QPM PO Last administered on 11/13/18 20:26; Admin Dose 0.5 MG; Start 11/08/18 at 21:00 Tamsulosin HCl (Flomax) 0.4 mg DAILY@21 PO Last administered on 11/13/18at 20:26; Admin Dose 0.4 MG; Start 11/08/18 at 21:00 Morphine Sulfate (morphine) 6 mg Q4H PRN PO SEVERE PAIN LEVEL 7-10; Start 11/08/18 at 22:30 Lactobacillus Acidophilus/ Rhamnosus (Culturelle) 1 cap BID PO Last administered on 11/14/18 09:20; Admin Dose 1 CAP; Start 11/11/18 at 14:30 Rifaximin (Xifaxan) 200 mg TID PO Last administered on 11/14/18 09:19; Admin Dose 200 MG; Start 11/11/18 at 15:00 Pantoprazole (Protonix Tab) 40 mg DAILY@06 PO Last administered on 11/14/18at 06:56; Admin Dose 40 MG; Start 11/12/18 at 06:00 Bismuth Subsalicylate (Pepto-Bismol) 30 ml QID PO Last administered on 11/14/18 09:20; Admin Dose 30 ML; Start 11/13/18 at 15:00 JENNY RAMIREZ NP Nov 14, 2018 15:33
--- NOTE | 2018-11-14 16:26 | PREAC ---
Date/Time of Note Date/Time of Note DATE: 11/14/18 TIME: 16:25 Anesthesia Eval and Record Evaluation Time Pre-Procedure Interview DATE: 11/14/18 TIME: 16:25 Age 57 Sex male NPO: 8 hrs Preoperative diagnosis LOLLY MOTA PAIN Planned procedure COLONOSCOPY Past Medical History Past Medical History: Includes Cardio: HTN Infection(s): HIV, Hep C Surgery & Anesthesia Issues No known issue Meds Anticoagulation: No Beta Allegra within 24 hr: No Reason Beta Allegra not given: Pt. not on B-Allegra Reported Medications Dutasteride/Tamsulosin HCl (Dutasteride-Tamsulosin 0.5-0.4) 1 Each Cpmp.24hr, 1 EACH PO DAILY, CAP 11/08/18 Gabapentin* (Gabapentin*) 300 Mg Capsule, 600 MG PO TID, #180 CAP 11/08/18 Lisinopril* (Lisinopril*) 40 Mg Tablet, 40 MG PO DAILY, #30 TAB 11/08/18 Diclofenac Sodium* (Voltaren* Gel) 1% -100 Gm Gel, 2 GM TOP TID, #1 TUB 11/08/18 Triamcinolone Acetonide* (Kenalog*) 0.5%-15GM Cr, 1 APPLIC TOP BID, #1 BOTTLE 11/08/18 Ferrous Sulfate* (Ferrous Sulfate*) 325 Mg Tabec, 325 MG PO DAILY, TAB 11/08/18 Discontinued Scripts Ciprofloxacin Hcl* (Ciprofloxacin Hcl*) 500 Mg Tablet, 500 MG PO BID for 7 Days, TAB Prov:GEE CEDILLO 10/10/16 Diazepam* (Diazepam*) 10 Mg Tablet, 10 MG PO Q12, #14 TAB Prov:FRANCISCO GAMBOA PA-C 06/04/16 Naproxen* (Naprosyn*) 500 Mg Tablet, 500 MG PO BID, #20 TAB Prov:FRANCISCO GAMBOA PA-C 06/04/16 Current Medications Diclofenac Sodium (Voltaren 1% Gel) 2 gm TID TP Last administered on 11/14/18at 12:36; Admin Dose 2 GM; Start 11/08/18 at 09:00 Triamcinolone Acetonide (Kenalog 0.5% Cr) 1 applic BID TOP Last administered on 11/14/18at 09:20; Admin Dose 1 APPLIC; Start 11/08/18 at 09:00 IV Flush (NS 3 ml) 3 ml PER PROTOCOL IV ; Start 11/08/18 at 07:00 Ondansetron HCl (Zofran Inj) 4 mg Q6H PRN IV NAUSEA/VOMITING Last administered on 11/08/18 12:03; Admin Dose 4 MG; Start 11/08/18 at 07:00 Enoxaparin Sodium (Lovenox) 40 mg DAILY SC Last administered on 11/14/18 09:19; Admin Dose 40 MG; Start 11/08/18 at 09:00 Ferrous Sulfate (Ferrous Sulfate (Ec)) 325 mg DAILY PO Last administered on 11/14/18 09:19; Admin Dose 325 MG; Start 11/09/18 at 09:00 Gabapentin (Neurontin) 600 mg TID PO Last administered on 11/14/18 09:19; Admin Dose 600 MG; Start 11/08/18 at 21:00 Lisinopril (Zestril) 40 mg DAILY PO Last administered on 11/14/18 09:20; Admin Dose 40 MG; Start 11/09/18 at 09:00 Hydralazine HCl (Apresoline) 10 mg Q6H PRN IV SBP>160; Start 11/08/18 at 15:30 Dutasteride (Avodart) 0.5 mg QPM PO Last administered on 11/13/18 20:26; Admin Dose 0.5 MG; Start 11/08/18 at 21:00 Tamsulosin HCl (Flomax) 0.4 mg DAILY@21 PO Last administered on 11/13/18 20:26; Admin Dose 0.4 MG; Start 11/08/18 at 21:00 Morphine Sulfate (morphine) 6 mg Q4H PRN PO SEVERE PAIN LEVEL 7-10; Start 11/08/18 at 22:30 Lactobacillus Acidophilus/ Rhamnosus (Culturelle) 1 cap BID PO Last administered on 11/14/18 09:20; Admin Dose 1 CAP; Start 11/11/18 at 14:30 Rifaximin (Xifaxan) 200 mg TID PO Last administered on 11/14/18 09:19; Admin Dose 200 MG; Start 11/11/18 at 15:00 Pantoprazole (Protonix Tab) 40 mg DAILY@06 PO Last administered on 11/14/18at 06:56; Admin Dose 40 MG; Start 11/12/18 at 06:00 Bismuth Subsalicylate (Pepto-Bismol) 30 ml QID PO Last administered on 11/14/18at 09:20; Admin Dose 30 ML; Start 11/13/18 at 15:00 Meds reviewed: Yes Allergies Coded Allergies: No Known Allergy (Unverified , 11/08/18) Allergies Reviewed: Yes Labs/Studies Labs Reviewed: Reviewed by anesthesiologist Result Diagram: 11/14/18 0532 11/14/18 0532 Laboratory Tests 11/14/18 05:32 test: N/A Studies: ECG (SR), CXR (N/A) Pre-procedure Exam Last vitals Vital Signs Date Temp Pulse Resp B/P (MAP) Pulse Ox O2 O2 Flow FiO2 Time Delivery Rate 11/14/18 80 18 153/90 95 Room Air 16:07 (111) 11/14/18 98.0 14:26 Airway: Adequate mouth opening Mallampati: Mallampati I Teeth: Normal Lung: Normal Heart: Normal ASA Physical Status ASA physical status: 2 Emergency: None Planned Anesthetic General/MAC: MAC Planned Pain Management Parenteral pain med Pre-operative Attestations Prior to commencing anesthesia and surgery, the patient was re-evaluated, there was verification of: *The patient's identity *The results of appropriate recent lab work and preoperative vital signs *The above evaluation not changing prior to induction *Anesthetic plan, risk benefits, alternative and complications discussed with patient/family; questions answered; patient/family understands, accepts and wish es to proceed. ALCIDES SNELL MD Nov 14, 2018 16:26
[2018-11-14] MEDS ORDERED: PROPOFOL 20 ML ONE (16:27)
[2018-11-14] MEDS ORDERED: ONDANSETRON 4 MG INJ IV PRN (16:30)
--- NOTE | 2018-11-14 16:43 | HPN ---
Date/Time of Note Date/Time of Note DATE: 11/14/18 TIME: 16:43 Interval H&P Admission Note Pt. seen H&P reviewed: No system changes MERY JACKSON Nov 14, 2018 16:43
[2018-11-14] MEDS: TAMSULOSIN (SR) 0.4 MG CAP PO SCH (20:04)
[2018-11-14] MEDS: DUTASTERIDE 0.5 MG CAP PO SCH (20:04)
[2018-11-15 02:04] VITALS: BP 121/71; PULSE 72; RESP 20
[2018-11-15] MEDS: PANTOPRAZOLE (EC) 40 MG TAB PO SCH (05:27)
[2018-11-15 08:01] VITALS: BP 130/72; PULSE 80; RESP 16
[2018-11-15] MEDS: ENOXAPARIN 40 MG/0.4 ML SYG SC SCH (08:45)
[2018-11-15] MEDS: RIFAXIMIN 200 MG TAB PO SCH ×2 (08:46→13:12)
[2018-11-15] MEDS: LACTOBACILLUS RHAMNOSUS CAP PO SCH (08:46)
[2018-11-15] MEDS: LISINOPRIL 20 MG TAB PO SCH (08:46)
[2018-11-15] MEDS: BISMUTH SUBSALICYLATE 240 ML BTL PO SCH ×2 (08:46→13:12)
[2018-11-15] MEDS: GABAPENTIN 300 MG CAP PO SCH ×2 (08:46→13:12)
[2018-11-15] MEDS: FERROUS SULFATE (EC) 325 MG TAB PO SCH (08:46)
[2018-11-15] MEDS: DICLOFENAC SODIUM 1% GEL 100 GM TUBE TP SCH ×2 (08:47→13:00)
[2018-11-15] MEDS: TRIAMCINOLONE ACET 0.5% 15 GM CR TOP SCH (08:47)
--- NOTE | 2018-11-15 09:10 | PAC ---
Date/Time of Note Date/Time of Note DATE: 11/15/18 TIME: 09:10 Post-Anesthesia Notes Post-Anesthesia Note Last documented vital signs Vital Signs Date Temp Pulse Resp B/P (MAP) Pulse Ox O2 O2 Flow FiO2 Time Delivery Rate 11/15/18 98.9 80 16 130/72 94 08:01 (91) 11/14/18 Nasal 17:09 Cannula Activity: WNL Respiratory function: WNL Cardiovascular function: WNL Mental status: Baseline Pain reasonably controlled: Yes Hydration appropriate: Yes Nausea/Vomiting absent: No ALCIDES SNELL MD Nov 15, 2018 09:10
--- NOTE | 2018-11-15 10:38 | DS ---
Date/Time of Note Date/Time of Note DATE: 11/15/18 TIME: 10:30 Discharge Summary Admission/Discharge Info Admit Date/Time Nov 10, 2018 at 10:11 Discharge Date/Time Patient Condition: Stable Consults Dr Judy Campbell Case management Social service Procedures CT abdomen pelvis: IMPRESSION: 1. Prominent nondilated fluid filled loops of small bowel in a fairly diffuse fashion consistent with ileus. Enteritis cannot be excluded. 2. No calcified urinary calculi obstructive uropathy. 3. Moderate circumferential urinary wall thickening may be due to chronic obstruction. Cystitis cannot be excluded. Unchanged mild enlarged prostate gland. Correlation with PSA levels may be helpful. 4. Small focal consolidation lingula left upper lobe may all be due to atelectasis. Acute infiltrate cannot be excluded. 5. Mild to moderate bilateral inguinal lymphadenopathy. Recommend clinical correlation and follow-up. Hx of Present Illness 57-year-old gentleman admitted with abdominal discomfort and probable diarrhea. CAT scan concerning for ileus/colitis Hospital Course Hospitalist coverage/hospital course Admitted for abdominal discomfort or diarrhea. Seen by GI and ID. Stool studies negative for C. difficile/ Culture additionally negative. s/p endoscopy to rule out inflammatory bowel disease/colitis. Biopsies sent. Patient instructed to follow-up with GI. Patient has HIV. Patient has been nonadherent to therapy. Thought process is that once/if HIV is under control, his abdominal symptoms will improve. In terms of his homelessness. Patient was seen and evaluated by social service. Options given but the patient refused. He is going to go back to his previous living situation. Assessment and plan 1. Abd pain, diarrhea ro ibd.sp colonoscopy/l biopsy. Follow-up with GI. avoid milk. 2. 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 Nonadherence to medical therapy 4. Chronic HIV status, needs to restart therapy 5. Chronic hepatitis C viremia with abn LFTs consider outpt ultrasound/ serial afp if he chooses to follow up. 6. Substance abuse: Meth tobacco cocaine? Underwent counseling. 7. Failure to thrive homeless? Refuses placement. Patient to go back to his previous living situation. 8. Lymphedema, may consider outpatient surgical lymph node biopsy. instructions given by specialty 9. Hypertension 10. BPH Subjective: 11/14 events noted. Patient on bowel prep 11/15: No events Objective: Vital signs stable Physical exam No pallor Regular no mrg Clear Bs+nt nd no RRG No edema Home Meds Reported Medications Dutasteride/Tamsulosin HCl (Dutasteride-Tamsulosin 0.5-0.4) 1 Each Cpmp.24hr, 1 EACH PO DAILY, CAP 11/08/18 Gabapentin* (Gabapentin*) 300 Mg Capsule, 600 MG PO TID, #180 CAP 11/08/18 Lisinopril* (Lisinopril*) 40 Mg Tablet, 40 MG PO DAILY, #30 TAB 11/08/18 Diclofenac Sodium* (Voltaren* Gel) 1% -100 Gm Gel, 2 GM TOP TID, #1 TUB 11/08/18 Triamcinolone Acetonide* (Kenalog*) 0.5%-15GM Cr, 1 APPLIC TOP BID, #1 BOTTLE 11/08/18 Ferrous Sulfate* (Ferrous Sulfate*) 325 Mg Tabec, 325 MG PO DAILY, TAB 11/08/18 Discontinued Scripts Ciprofloxacin Hcl* (Ciprofloxacin Hcl*) 500 Mg Tablet, 500 MG PO BID for 7 Days, TAB Prov:GEE CEDILLO 10/10/16 Diazepam* (Diazepam*) 10 Mg Tablet, 10 MG PO Q12, #14 TAB Prov:FRANCISCO GAMBOA PA-C 06/04/16 Naproxen* (Naprosyn*) 500 Mg Tablet, 500 MG PO BID, #20 TAB Prov:FRANCISCO GAMBOA PA-C 06/04/16 Follow-up Plan Baudilio Moe MD Specialty: Internal Medicine Office Address: [address] [place] [address] Office Primary Care Provider Not On Staff Doctor Time spent on discharge: > 30 minutes Pending Labs Laboratory Tests Test 11/15/18 06:01 White Blood Count 5.4 10^3/ul (4.8-10.8) Red Blood Count 3.80 10^6/ul (4.70-6.10) Hemoglobin 11.8 g/dl (14.0-18.0) Hematocrit 37.4 % (42.0-52.0) Mean Corpuscular Volume 98.4 fl (82.0-101.0) Mean Corpuscular Hemoglobin 31.1 pg (29.0-33.0) Mean Corpuscular Hemoglobin Concent 31.6 g/dl (32.0-37.0) Red Cell Distribution Width 11.9 % (11.5-14.5) Platelet Count 150 10^3/UL (140-415) Mean Platelet Volume 12.1 fl (7.4-10.4) Immature Granulocytes % 0.400 % (0.001-0.429) Neutrophils % 44.3 % (39.0-77.0) Lymphocytes % 39.4 % (15.0-51.0) Monocytes % 15.3 % (0.0-11.0) Eosinophils % 0.4 % (0.0-7.0) Basophils % 0.2 % (0.0-2.0) Nucleated Red Blood Cells % 0.0 /100WBC (0.0-0.0) Immature Granulocytes # 0.020 10^3/ul (0.0-0.031) Neutrophils # 2.4 10^3/ul (1.6-7.5) Lymphocytes # 2.1 10^3/ul (0.8-2.9) Monocytes # 0.8 10^3/ul (0.3-0.9) Eosinophils # 0.0 10^3/ul (0.0-0.5) Basophils # 0.0 10^3/ul (0.0-0.1) Nucleated Red Blood Cells # 0.0 10^3/ul (0.0-0.0) Prothrombin Time 13.4 Sec (11.9-14.9) Prothrombin Time Ratio 1.0 INR International Normalized Ratio 1.01 Sodium Level 140 mmol/L (135-144) Potassium Level 3.5 mmol/L (3.5-5.1) Chloride Level 102 mmol/L (97-110) Carbon Dioxide Level 29 mmol/L (21-31) Anion Gap 9 (5-13) Blood Urea Nitrogen 12 mg/dl (7-20) Creatinine 0.92 mg/dl (0.61-1.24) Est Glomerular Filtrat Rate mL/min > 60 mL/min (>60) Glucose Level 86 mg/dl (70-220) Calcium Level 8.8 mg/dl (8.4-10.2) Total Bilirubin 0.2 mg/dl (0.2-1.3) Direct Bilirubin 0.00 mg/dl (0.00-0.20) Indirect Bilirubin 0.2 mg/dl (0-1.1) Aspartate Amino Transf (AST/SGOT) 112 IU/L (15-46) Alanine Aminotransferase (ALT/SGPT) 94 IU/L (13-69) Alkaline Phosphatase 66 IU/L (42-121) Total Protein 7.4 g/dl (6.1-8.1) Albumin 3.4 g/dl (3.3-4.9) Globulin 4.00 g/dl (1.3-3.2) Albumin/Globulin Ratio 0.85 Alpha Fetoprotein 2.77 IU/L (0.00-7.21) Thyroid Stimulating Hormone (TSH) 1.360 MIU/L (0.465-4.680) MARVEL SUERO MD Nov 15, 2018 10:38
--- NOTE | 2018-11-15 10:40 | PDOCDIS ---
Discharge Instructions CONDITION [id number] Patient Condition: [id number] Stable HOME CARE INSTRUCTIONS: [id number] Diet Instructions: [id number] Regular [id number] Special Diet: Petxh9e dairy free ACTIVITY: [id number] Activity Restrictions: [id number] Slowly Increase Activity Avoid heavy lifting FOLLOW UP/APPOINTMENTS Follow-up Plan Primary 1wk Baudilio Moe MD Specialty: Internal Medicine Office Address: [address] [place] [address] Kim 1-2wks. ID/ HIV Specialist 1wk MARVEL SUERO MD Nov 15, 2018 10:40
[2018-11-15] MEDS ORDERED: BISM262O20 PO (10:43)
[2018-11-15] MEDS ORDERED: LACT1CAP28 PO (10:44)
--- NOTE | 2018-11-15 14:48 | CONS ---
Assessment/Plan Assessment/Plan Hospital Course (Demo Recall) 1030 No acute events, patient is alert, looks comfortable no fevers Stool for C. difficile negative Physical examination: Well-nourished well-developed middle-aged man in no distress. Head atraumatic normocephalic neck is supple chest rise symmetrical breath sounds diminished bases heart S1-S2 abdomen soft bowel sounds present extremities without cyanosis. Assessment: 1. Persistent diarrhea, patient is scheduled for colonoscopy 2. HIV disease with CD4 count of 437, not on therapy secondary to #3 and #4 3. Medical noncompliance 4. Polysubstance abuse 5. Homelessness Plan: Stable, refused colonoscopy/EGD, pending dc. Patient to follow with HIV clinic outpatient for management of his HIV disease. Consultation Date/Type/Reason Admit Date/Time Nov 10, 2018 at 10:11 Initial Consult Date 11/13/18 Type of Consult id Date/Time of Note DATE: 11/15/18 TIME: 14:46 Exam/Review of Systems Exam Vitals Vital Signs Date Temp Pulse Resp B/P (MAP) Pulse Ox O2 O2 Flow FiO2 Time Delivery Rate 11/15/18 98.9 80 16 130/72 94 08:01 (91) 11/14/18 Nasal 17:09 Cannula Intake and Output 11/14/18 11/14/18 11/15/18 1515:00 23:00 07:00 IntakeIntake Total 840 ml 360 ml OutputOutput Total 1150 ml 250 ml 450 ml BalanceBalance -310 ml 110 ml -450 ml Results Result Diagram: 11/15/18 0601 11/15/18 0601 Results 24hrs Laboratory Tests Test 11/15/18 06:01 11/15/18 11:08 White Blood Count 5.4 Red Blood Count 3.80 L Hemoglobin 11.8 L Hematocrit 37.4 L Mean Corpuscular Volume 98.4 Mean Corpuscular Hemoglobin 31.1 Mean Corpuscular Hemoglobin Concent 31.6 L Red Cell Distribution Width 11.9 Platelet Count 150 Mean Platelet Volume 12.1 H Immature Granulocytes % 0.400 Neutrophils % 44.3 Lymphocytes % 39.4 Monocytes % 15.3 H Eosinophils % 0.4 Basophils % 0.2 Nucleated Red Blood Cells % 0.0 Immature Granulocytes # 0.020 Neutrophils # 2.4 Lymphocytes # 2.1 Monocytes # 0.8 Eosinophils # 0.0 Basophils # 0.0 Nucleated Red Blood Cells # 0.0 Prothrombin Time 13.4 Prothrombin Time Ratio 1.0 INR International Normalized Ratio 1.01 Sodium Level 140 Potassium Level 3.5 Chloride Level 102 Carbon Dioxide Level 29 Anion Gap 9 Blood Urea Nitrogen 12 Creatinine 0.92 Est Glomerular Filtrat Rate mL/min > 60 Glucose Level 86 Calcium Level 8.8 Total Bilirubin 0.2 Direct Bilirubin 0.00 Indirect Bilirubin 0.2 Aspartate Amino Transf (AST/SGOT) 112 H Alanine Aminotransferase (ALT/SGPT) 94 H Alkaline Phosphatase 66 Total Protein 7.4 Albumin 3.4 Globulin 4.00 H Albumin/Globulin Ratio 0.85 Alpha Fetoprotein 2.77 Thyroid Stimulating Hormone (TSH) 1.360 Lab Scanned Report [facility] JENNY RAMIREZ NP Nov 15, 2018 14:48
== END 2018-11-15 13:38 | disposition home or self-care (01) | DRG 389 ==
LOC: E/R 00:44 → PP2 05:41 → OBSVTOIN 11-10 10:11
PROVIDERS: ADMIT Internal Medicine; ATTEND Internal Medicine
PROC: 0DBE8ZX Excision of Large Intestine, Via Natural or Artificial Opening Endoscopic, Diagnostic (ICD-10-PCS; principal; 2018-11-14 16:30)
DX: K56.7 Ileus, unspecified (principal); A08.39 Other viral enteritis; F15.10 Other stimulant abuse, uncomplicated; I10 Essential (primary) hypertension; E78.5 Hyperlipidemia, unspecified; E11.9 Type 2 diabetes mellitus without complications; B18.2 Chronic viral hepatitis C; F17.200 Nicotine dependence, unspecified, uncomplicated; N40.0 Benign prostatic hyperplasia without lower urinary tract symptoms; R74.0 Nonspecific elevation of levels of transaminase and lactic acid dehydrogenase [LDH]; F14.10 Cocaine abuse, uncomplicated; M54.40 Lumbago with sciatica, unspecified side; Z59.0 Homelessness; R60.0 Localized edema; R62.7 Adult failure to thrive; I89.0 Lymphedema, not elsewhere classified; K58.0 Irritable bowel syndrome with diarrhea; Z91.19 Patient's noncompliance with other medical treatment and regimen; T50.996A Underdosing of other drugs, medicaments and biological substances, initial encounter; Z91.120 Patient's intentional underdosing of medication regimen due to financial hardship
CPT/HCPCS: 36415; 71045; 74176; 80048; 80053; 80307; 81001; 81003; 82105; 83036; 83690; 83735; 83880; 84100; 84153; 84154; 84443; 84484; 85025; 85610; 86038; 86255; 86360; 86674; 86709; 86803; 87045; 87075; 87340; 87536; 88305; 93005; 93970; 96374; 97110; 97116; 97161; 97530; G0378; C9113; J0360; J1650; J2270; J2405; J2765; J3475; J7030; J7042